=== PATIENT | male | born 1950 | race Caucasian/White ===

== ENCOUNTER 2017-11-16 10:24 | Emergency (ER) | payer MEDICARE ==
[2017-11-16 11:17] LABS: #Eosinphils 0.1 thou/uL (0.0-0.7); #Lymphocytes 0.7 thou/uL (1.20-3.40); #Monocytes 0.9 thou/uL (0.11-0.59); #Neutrophils 8.3 thou/uL (1.40-6.50); %Basophils 0.3 % (0.0-1.0); %Eosinophils 0.6 % (0.0-10.0); %Lymphocytes 7.1 % (21.0-51.0); %Monocytes 9.4 % (0.0-10.0); %Neutrophils 82.7 % (42.0-75.0); Hemoglobin 11.8 g/dL (14.0-18.0); Mean Corpuscular HGB CONC 32.7 g/dL (32.0-36.0); Mean Corpuscular Hemoglobin 30.9 pg (27.0-31.0); Mean Corpuscular Volume 94.7 fl (80.0-94.0); Mean Platelet Volume 7.8 fL (7.4-10.4); Platelet Count 174 thou/uL (130-400); RBC Distribution Width 13.3 % (11.5-14.5); Red Blood Cell (RBC) Count 3.82 mill/uL (4.70-6.10)
--- NOTE | 2017-11-16 11:26 | RAD ---
PORTABLE CHEST 1 VIEW: DATE: 11/16/17. TIME: 11:01 a.m. HISTORY: Difficulty breathing. FINDINGS/IMPRESSION: Comparison is made with the exam of 01/05/16. The heart size is normal. The lungs are expanded with chronic changes predominantly in the lower margarita g walker. Prominent interstitial markings demonstrate interval worsening at the lung bases which may be due to an overlying acute process or worsening of chronic disease. No pneumothoraces, jasmin pulm onary edema, or large effusions are seen. Small effusions may be present. POS: [facility]
[2017-11-16 11:43] LABS: ALT (SGPT) 17 U/L (8-55); AST (SGOT) 24 U/L (5-34); Albumin 3.9 g/dL (3.4-4.8); Alkaline Phosphatase 73 U/L (40-150); Anion Gap 9 mmol/L (10-20); BUN (Urea Nitrogen) 14 mg/dL (8.4-25.7); Bilirubin, Total 0.5 mg/dL (0.2-1.2); Calc. Creatinine Clearance 0 mL/min (70-130); Calcium 8.8 mg/dL (7.8-10.44); Carbon Dioxide 36 mmol/L (23-31); Chloride 90 mmol/L (98-107); Estimated GFR-MDRD Greater than 90; Globulin 3.2 g/dL (2.4-3.5); Glucose 116 mg/dL (80-115); Potassium 4.4 mmol/L (3.5-5.1); Protein, Total 7.1 g/dL (5.8-8.1); Sodium 131 mmol/L (136-145)
[2017-11-16 11:45] LABS: CKMB 0.8 ng/mL (0-6.6); Troponin I 0.027 ng/mL (< 0.028)
[2017-11-16] MEDS ORDERED: methylPREDNISolone Sod Succ/PF 125 MG/2 ML VIAL ONE (13:30)
--- NOTE | 2017-12-06 15:12 | EKG ---
Test Reason : Blood Pressure : / mmHG Vent. Rate : 083 BPM Atrial Rate : 083 BPM P-R Int : 154 ms QRS Dur : 088 ms QT Int : 358 ms P-R-T Axes : 016 073 052 degrees QTc Int : 420 ms Normal sinus rhythm Normal ECG Confirmed by CARYN TERRY ([id number]), editor & co founder WANDA ELLIOTT ([id number] on 12/06/2017 3:12:05 PM Referred By: Confirmed By:CARYN TERRY
== END 2017-11-16 15:38 | disposition home or self-care (01) ==
LOC: ERS 10:24
DX: J44.9 Chronic obstructive pulmonary disease, unspecified (principal); I10 Essential (primary) hypertension
CPT/HCPCS: 71045; 80053; 82553; 83880; 84484; 85025; 93005; 94640; 94760; 96365; 96375; J1956; J2930; J7620

== ENCOUNTER 2018-03-13 00:09 | Emergency (ER) | payer MEDICARE ==
[2018-03-13 00:49] LABS: #Eosinphils 0.1 thou/uL (0.0-0.7); #Monocytes 0.7 thou/uL (0.11-0.59); #Neutrophils 7.5 thou/uL (1.40-6.50); %Basophils 0.1 % (0.0-1.0); %Eosinophils 0.8 % (0.0-10.0); %Lymphocytes 10.3 % (21.0-51.0); %Monocytes 7.7 % (0.0-10.0); %Neutrophils 81.1 % (42.0-75.0); Hemoglobin 11.5 g/dL (14.0-18.0); Mean Corpuscular HGB CONC 33.2 g/dL (32.0-36.0); Mean Corpuscular Hemoglobin 30.3 pg (27.0-31.0); Mean Corpuscular Volume 91.3 fl (80.0-94.0); Platelet Count 178 thou/uL (130-400); RBC Distribution Width 13.9 % (11.5-14.5); Red Blood Cell (RBC) Count 3.79 mill/uL (4.70-6.10); White Blood Cell (WBC) Count 9.3 thou/uL (4.8-10.8)
[2018-03-13] MEDS ORDERED: Fentanyl 100 MCG/2 ML VIAL ONE (01:09)
[2018-03-13 01:18] LABS: ALT (SGPT) 19 U/L (8-55); AST (SGOT) 25 U/L (5-34); Albumin 3.9 g/dL (3.4-4.8); Alkaline Phosphatase 84 U/L (40-150); Anion Gap 16 mmol/L (10-20); BUN (Urea Nitrogen) 16 mg/dL (8.4-25.7); Bilirubin, Total 0.6 mg/dL (0.2-1.2); Calc. Creatinine Clearance 0 mL/min (70-130); Calcium 8.8 mg/dL (7.8-10.44); Carbon Dioxide 25 mmol/L (23-31); Chloride 92 mmol/L (98-107); Estimated GFR-MDRD Greater than 90; Globulin 2.9 g/dL (2.4-3.5); Glucose 118 mg/dL (80-115); Potassium 3.8 mmol/L (3.5-5.1); Protein, Total 6.8 g/dL (5.8-8.1); Sodium 129 mmol/L (136-145)
--- NOTE | 2018-03-13 08:06 | RAD ---
PORTABLE CHEST 1 VIEW: DATE: 03/13/18. TIME: 12:30 p.m. HISTORY: Fall, left-sided pain. FINDINGS/IMPRESSION: Comparison is made with the exam of 11/16/17. The heart size is normal. Chronic changes in the lung walker are again seen. No lobar consolidation, pneumothoraces, or large effusions are identified. POS: [facility]
--- NOTE | 2018-03-13 08:24 | RAD ---
LEFT FOREARM 2 VIEWS:LEFT FOREARM 2 VIEWS: HISTORY: Fall, left elbow pain. FINDINGS/IMPRESSION: There is an avulsion fracture of the olecranon process in the ulna with mild superior displacement. Soft tissue swelling is seen posteriorly at the level of the elbow. POS: [facility]
--- NOTE | 2018-03-13 08:27 | RAD ---
LEFT CLAVICLE TWO VIEWS: History: Fall, left sided shoulder pain. FINDINGS/IMPRESSION: There are degenerative changes in the acromioclavicular joint. The left clavicle appears intact. POS: [facility]
--- NOTE | 2018-03-13 08:29 | RAD ---
LEFT ELBOW FOUR VIEWS: History: Fall, left elbow pain. FINDINGS/IMPRESSION: There is an avulsion fracture of the olecranon process with mild superior displacement. Soft tissue s welling is present. POS: [facility]
--- NOTE | 2018-03-13 08:32 | RAD ---
THREE VIEWS LEFT SHOULDER: Date: 03-13-18 Comparison: None. History: Fall, trauma, pain. FINDINGS: There is degenerative change of the right AC joint with interspace narrowing and osteophyte formation . There is narrowing of the glenohumeral joint with inferior osteophyte formation. There is no wideni ng of the coracoclavicular interspace. No acute fracture or evidence of dislocation is seen. On the scapula Y view there is corticated osseous fragment adjacent to the posterior aspect of the ac romion, which could be on the basis of prior trauma, degenerative change, or possibly calcific tendin osis. IMPRESSION: Chronic appearing findings as described above. No acute fracture or evidence of dislocation is seen. POS: [facility]
== END 2018-03-13 02:48 | disposition home or self-care (01) ==
LOC: ERS 00:09
DX: S52.022A Displaced fracture of olecranon process without intraarticular extension of left ulna, initial encounter for closed fracture (principal); S49.92XA Unspecified injury of left shoulder and upper arm, initial encounter; J44.9 Chronic obstructive pulmonary disease, unspecified; I10 Essential (primary) hypertension; Z87.891 Personal history of nicotine dependence; Z79.899 Other long term (current) drug therapy; W01.0XXA Fall on same level from slipping, tripping and stumbling without subsequent striking against object, initial encounter
CPT/HCPCS: 24670; 71045; 80053; 85025; 94760; 96361; 96374; J3010

== ENCOUNTER 2019-05-30 16:11 | Emergency (ER) | payer MEDICARE ==
[2019-05-30 16:51] LABS: #Eosinphils 0.1 thou/uL (0.0-0.7); #Lymphocytes 0.9 thou/uL (1.20-3.40); #Monocytes 0.7 thou/uL (0.11-0.59); #Neutrophils 5.6 thou/uL (1.40-6.50); %Basophils 0.2 % (0.0-1.0); %Eosinophils 0.9 % (0.0-10.0); %Monocytes 10.3 % (0.0-10.0); %Neutrophils 76.6 % (42.0-75.0); Hemoglobin 11.4 g/dL (14.0-18.0); Mean Corpuscular HGB CONC 32.4 g/dL (32.0-36.0); Mean Corpuscular Hemoglobin 30.1 pg (27.0-31.0); Mean Corpuscular Volume 92.9 fL (78.0-98.0); Mean Platelet Volume 8.4 fL (7.4-10.4); Platelet Count 158 thou/uL (130-400); RBC Distribution Width 13.6 % (11.5-14.5); Red Blood Cell (RBC) Count 3.79 mill/uL (4.70-6.10); White Blood Cell (WBC) Count 7.3 thou/uL (4.8-10.8)
[2019-05-30 17:00] LABS: Bilirubin Negative (Negative); Blood, Urine Negative (Negative); Clarity Clear (Clear); Glucose, Urine (Dipstick) Normal (Negative); Leukocyte 75 Leu/uL (Negative); Nitrite Negative (Negative); Protein, Urine (Dipstick) Negative (Neg-Trace); RBC/HPF 0-3 HPF (0-3); Squamous Epithelial None Seen HPF (0-3); Urobilinogen Normal mg/dL (Less than 2)
[2019-05-30 17:01] LABS: Bacteria/HPF 1+ HPF (None Seen)
[2019-05-30 17:10] LABS: ALT (SGPT) 18 U/L (8-55); AST (SGOT) 21 U/L (5-34); Albumin 3.8 g/dL (3.4-4.8); Alkaline Phosphatase 80 U/L (40-150); Anion Gap 11 mmol/L (10-20); BUN (Urea Nitrogen) 14 mg/dL (8.4-25.7); Bilirubin, Total 0.6 mg/dL (0.2-1.2); Calc. Creatinine Clearance 0 mL/min (70-130); Calcium 8.5 mg/dL (7.8-10.44); Carbon Dioxide 32 mmol/L (23-31); Chloride 93 mmol/L (98-107); Estimated GFR-MDRD Greater than 90; Globulin 2.7 g/dL (2.4-3.5); Glucose 95 mg/dL (80-115); Potassium 4.8 mmol/L (3.5-5.1); Protein, Total 6.5 g/dL (5.8-8.1); Sodium 131 mmol/L (136-145)
== END 2019-05-30 17:50 | disposition home or self-care (01) ==
LOC: ERS 16:11
DX: N39.0 Urinary tract infection, site not specified (principal); I10 Essential (primary) hypertension; J44.9 Chronic obstructive pulmonary disease, unspecified; Z87.891 Personal history of nicotine dependence; Z79.899 Other long term (current) drug therapy
CPT/HCPCS: 36415; 80053; 81003; 81015; 85025; 87086; 99283

== ENCOUNTER 2019-06-24 15:41 | Outpatient (CLI) | payer MEDICARE ==
--- NOTE | 2019-06-24 16:17 | RAD ---
EXAM: CHEST PA AND LATERAL TWO VIEWS: 06/24/19 HISTORY: Dyspnea. COMPARISON: 03/13/18. FINDINGS: Bilateral hyperinflation and chronic lung changes with linear changes in the lung bases and blunting of the costophrenic angles greater on the right side but overall stable. No confluent pneumonia, over t edema, or pleural effusion. IMPRESSION: Hyperinflation and chronic lung changes. Stable appearance from prior study. POS: [facility]
== END 2019-06-24 15:42 | disposition home or self-care (01) ==
LOC: RAD 15:41
PROVIDERS: ATTEND Internal Medicine Critical Care Medicine
DX: R06.00 Dyspnea, unspecified (principal); J98.4 Other disorders of lung
CPT/HCPCS: 71046

== ENCOUNTER 2020-07-30 15:01 | Emergency (ER) | payer MEDICARE ==
[2020-07-30] MEDS ORDERED: Boostrix 0.5 ML (Tdap) VIAL ONE (15:54)
--- NOTE | 2020-07-30 16:06 | CT ---
CT BRAIN WITHOUT CONTRAST: 07/30/20 HISTORY: Fall, headache. FINDINGS: No evidence of acute infarct, hemorrhage, midline shift or abnormal extra-axial fluid collections are seen. The ventricular size is normal and the basilar cisterns patent. the bony calvarium is intact. The visualized paranasal sinuses and mastoid air cells are well aerated. IMPRESSION: No CT evidence of acute intracranial process. POS: [facility]
--- NOTE | 2020-07-30 16:23 | RAD ---
Exam: XR Knee Lt 2 View HISTORY: Left knee injury. COMPARISON: None FINDINGS: No acute fracture or dislocation is seen. There is irregularity anterior tibial tuberosity which may be related to prior injury or prior Darin-Schlatter's disease. Osteopenia is present. No other findings IMPRESSION: No acute osseous abnormality is identified.
--- NOTE | 2020-07-30 16:24 | RAD ---
EXAM: XR Hand Lt 3 View STANDARD PROVIDED CLINICAL HISTORY: Pain FINDINGS: There is no evidence for fracture or other acute osseous abnormality. Advanced first CMC degenerative change. Joint spaces appear otherwise preserved. IMPRESSION: No evidence for an acute osseous abnormality. If there is persistent clinical concern, conservative m anagement and follow-up imaging advised.
--- NOTE | 2020-07-30 16:25 | RAD ---
EXAM: 2 views of the left humerus HISTORY: left arm pain after fall COMPARISON: Chest x-ray 06/24/2019 FINDINGS: 2 views of the left humerus shows an ossific fragment adjacent to the proximal aspect of th e humerus. No other potential humeral is fractures are seen. There is a fracture of the olecranon. No degenerative changes are seen. No soft tissue swelling is present. IMPRESSION: 1. Ossific fragment adjacent to the humeral head. This could represent calcific tendinopathy but a fr acture cannot be entirely excluded. A dedicated shoulder series is recommended. 2. Olecranon fracture at the elbow.
--- NOTE | 2020-07-30 16:26 | RAD ---
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 No evidence for an acute fracture. Alignment ap pears otherwise anatomic. Joint spaces appear preserved. If there is persistent clinical concern, conservative management and follow-up imaging advised. IMPRESSION: As above.
--- NOTE | 2020-07-30 16:27 | RAD ---
Exam: XR Forearm Lt 2 View STANDARD HISTORY: Patient fell on right side. Injury after fall. COMPARISON: Views left elbow on 07/30/2020 and 04/18/2018 FINDINGS: There is evidence of a nonunion fracture involving the olecranon process of the ulna. This fracture w as seen on prior views of the elbow on 03/13/2018 and 04/18/2018. No obvious acute fracture is seen, and there is no dislocation. Mild degenerative changes are seen at the elbow. Osteopenia is present. Mild subcutaneous soft tissue swelling is seen at the distal aspect of the forearm. IMPRESSION: 1. No acute osseous abnormality left elbow. 2. Nonunion fracture olecranon process left elbow. 3. Mild subcutaneous soft tissue swelling distal left forearm.
--- NOTE | 2020-07-30 16:45 | RAD ---
Exam:3 views left shoulder HISTORY: Pain. Fall. Weakness. COMPARISON: 03/13/2018 FINDINGS: There is extensive chronic degenerative change involving the left shoulder. There is osteop hyte formation along the joint space. No obvious dislocation or fracture. Lucency involving the greater tuberosity is presumed to be due to chronic change. Lucency is similar to the previous exam. There are degenerative changes of the acromioclavicular joint space Stable fragmentation along the posterior aspect of the joint space best demonstrated on the scapular Y view. Stable bone demineralization. IMPRESSION: Degenerative changes involving the left shoulder. No fracture. If there is still concern, consider CT.
== END 2020-07-30 17:05 | disposition home or self-care (01) ==
LOC: ERS 15:01
DX: S60.212A Contusion of left wrist, initial encounter (principal); S00.91XA Abrasion of unspecified part of head, initial encounter; I10 Essential (primary) hypertension; J44.9 Chronic obstructive pulmonary disease, unspecified; Z87.891 Personal history of nicotine dependence; Z79.899 Other long term (current) drug therapy; W01.10XA Fall on same level from slipping, tripping and stumbling with subsequent striking against unspecified object, initial encounter
CPT/HCPCS: 70450; 90471; 90715

== ENCOUNTER 2020-08-04 15:18 | Inpatient (IN) | payer MEDICARE ==
[~2020-08-04 15:18] MED LIST: Iopamidol-370 76% 500 ML 1 ML ONE
[2020-08-04 15:55] LABS: #Eosinphils 0.1 thou/uL (0.0-0.7); #Lymphocytes 1.1 thou/uL (1.20-3.40); #Monocytes 1.1 thou/uL (0.11-0.59); %Basophils 0.4 % (0.0-1.0); %Eosinophils 1.4 % (0.0-10.0); %Lymphocytes 10.2 % (21.0-51.0); %Monocytes 10.8 % (0.0-10.0); %Neutrophils 77.2 % (42.0-75.0); Hemoglobin 10.5 g/dL (14.0-18.0); Mean Corpuscular HGB CONC 32.2 g/dL (32.0-36.0); Mean Corpuscular Hemoglobin 30.1 pg (27.0-31.0); Mean Corpuscular Volume 93.3 fL (78.0-98.0); Mean Platelet Volume 8.4 fL (7.4-10.4); Platelet Count 210 thou/uL (130-400); White Blood Cell (WBC) Count 10.3 thou/uL (4.8-10.8)
[2020-08-04] MEDS ORDERED: Acetaminophen 500 MG TAB ONE (16:02)
--- NOTE | 2020-08-04 16:15 | RAD ---
RADIOGRAPH CHEST 1 VIEW: Date: 08/04/2020 Time: 3:55 P.M. HISTORY: 70-year-old male with dyspnea and hypoxemia. COMPARISON: 06/24/2019. FINDINGS: Prominent interstitial markings at lower lung zones, appear greater than on the prior study. That cou ld be due to technical differences with difference in exposure between the two studies. Generalized h yperinflation consistent with COPD. No obvious definite consolidation. No cardiomegaly. No pneumothor ax. IMPRESSION: 1. Emphysema. 2. Prominent interstitial markings at mid and lower lung zones. DANNY [] POS: [facility]
[2020-08-04 16:18] LABS: ALT (SGPT) 13 U/L (8-55); AST (SGOT) 15 U/L (5-34); Albumin 3.3 g/dL (3.4-4.8); Alkaline Phosphatase 73 U/L (40-110); Anion Gap 10 mmol/L (10-20); BUN (Urea Nitrogen) 16 mg/dL (8.4-25.7); Calc. Creatinine Clearance 0 mL/min (70-130); Calcium 8.3 mg/dL (7.8-10.44); Carbon Dioxide 37 mmol/L (23-31); Chloride 92 mmol/L (98-107); Estimated GFR-MDRD Greater than 90; Globulin 3.5 g/dL (2.4-3.5); Glucose 110 mg/dL (80-115); Potassium 5.3 mmol/L (3.5-5.1); Protein, Total 6.8 g/dL (5.8-8.1); Sodium 134 mmol/L (136-145)
[2020-08-04 16:24] LABS: Bilirubin, Total 0.5 mg/dL (0.2-1.2)
[2020-08-04] MEDS ORDERED: methylPREDNISolone Sod Succ/PF 125 MG/2 ML VIAL ONE (16:35)
[2020-08-04] MEDS ORDERED: Albuterol 200 PUFF (6.7GM INHALER) ONE (16:37)
[2020-08-04 16:38] LABS: Bilirubin Negative (Negative); Blood, Urine Negative (Negative); Glucose, Urine (Dipstick) Negative (Negative); Ketone, Urine Negative (Negative); Leukocyte Negative (Negative); Nitrite Negative (Negative); Protein, Urine (Dipstick) Negative (Neg-Trace)
[2020-08-04 16:43] LABS: Clarity Clear (Clear)
--- NOTE | 2020-08-04 17:48 | CT ---
CT ANGIOGRAM THORAX WITH IV CONTRAST AND 3-D RECONSTRUCTIONS CLINICAL INDICATION: Increased shortness of breath and elevated d-dimer. COMPARISON: 03/19/2013 FINDINGS: Pulmonary arteries: No filling defects are seen in the pulmonary arteries to suggest a pulmonary embo tyra. Aorta: Minimal vascular calcifications are present. Thoracic aorta is normal in caliber without evide nce of an aortic dissection. Lungs: There are emphysematous changes seen within the lungs bilaterally greater in the upper lobes w hich have progressed from prior study in 2013. Mild interstitial thickening is present in each upper lobe. There are reticulonodular densities seen at the right lung base with consolidation at the right lung base. A 7 mm pulmonary nodule is seen in the left upper lobe. This was not seen on study in 2013. Tiny bilateral pleural effusions are present. Scarring is present at the right lung base. There are filling defects seen within right lower lobe bronchi which could be related to mucous plugg ing or aspiration. There is also small amount of debris in the posterior aspect of the lower thoracic trachea with may be related to small amount of debris. No definite filling defects are seen within left-sided bronchi. Mediastinum: There is an enlarged AP window lymph node measuring 1.8 cm in short axis dimension with increase in number of mediastinal lymph nodes. There is increased soft tissue density in the subcarinal region related to enlarged lymph nodes measuring 1.5 cm in short axis dimension. Soft tiss ue density is seen in the right hilar region measuring approximately 2.8 cm with soft tissue density also seen in the left hilar region but smaller in size suggesting bilateral hilar lymphadenop athy. There are several hypodense structures likely due to enlarged lymph nodes in a paravertebral location which are adjacent to several lower thoracic vertebral bodies largest on the right measuring 2 cm. Largest presumed lymph node on the left measures 1.4 cm in short axis dimension. The heart is mildly enlarged. Vascular calcifications are seen in the coronary arteries. There is a small hiatal hernia with particulate matter seen in the most distal esophagus related to g astroesophageal reflux. Thyroid gland: Normal CT appearance. Osseous structures: Multilevel degenerative changes are seen in the spine. There is bilateral glenohu meral osteoarthropathy. Chest wall: Minimal gynecomastia present. Upper abdomen: Calcified granulomata in the liver and spleen. Few hypodense lesions are seen in the l eft hepatic lobe largest seen in the posterior aspect lateral segment left hepatic lobe measuring 1.4 cm which cannot be further characterized on this examination. IMPRESSION: 1. Mediastinal and bilateral hilar lymphadenopathy including multiple enlarged lymph nodes adjacent t o lower thoracic vertebral bodies in a subpleural location. While findings could be related to reactive lymphadenopathy, lymphadenopathy related to lymphoma or metastatic disease cannot be exclude d. 2. Filling defects in right lower lobe bronchi with consolidation right lung base. These findings cou ld be related to mucous plugging and volume loss. Aspiration and associated aspiration pneumonitis is a possibility or postobstructive pneumonitis. 3. Reticulonodular densities right lower lobe suggesting infectious or inflammatory process. 4. Left upper lobe pulmonary nodule measuring 7 mm. No definite additional discrete pulmonary nodules are seen. Continued follow-up of this finding is recommended in 4 months. 5. Mild cardiomegaly. 6. Difficult to characterize hypodense lesions left hepatic lobe. 7. Hiatal hernia with debris in the distal esophagus which may related to gastroesophageal reflux. 8. No CT evidence of a pulmonary embolus
[2020-08-04] MEDS ORDERED: Azithromycin 500 MG VIAL ONE (19:28)
[2020-08-04] MEDS ORDERED: cefTRIAXone\\ROCEPHIN 1 GM VIAL ONE (19:28)
[2020-08-04] MEDS ORDERED: Metoprolol Tartrate 5 MG/5 ML VIAL IVP PRN (21:59)
[2020-08-05] MEDS ORDERED: methylPREDNISolone Sod Succ 40 MG VIAL ONE (00:33)
--- NOTE | 2020-08-05 01:51 | HP ---
REASON FOR ADMISSION: Shortness of breath. HISTORY OF PRESENT ILLNESS: This is a 70-year-old male patient who is presenting with shortness of breath that has been going back to couple weeks before his presentation. He is known to have COPD and usually his pulse ox is around 89% to 90% at rest and dips down a bit when he ambulates, but recently he has been having a decreased pulse ox to around 65% on ambulation. He was seen by his headrig sawyer, Dr. Bird, who started him on antibiotics and steroids. He did see him a month ago, but he has not been improving and that is why he came to the emergency room. Currently, he feels a bit better after receiving breathing treatments and IV antibiotics as well as IV Solu-Medrol. I did review his records and his last admission to the hospital was approximately 7 years ago. During his stay, he was diagnosed with lung abscess and COPD. He did undergo a bronchoscopy and pulmonary decortication on the right with drainage of his lung abscess. The patient was seen in the ER end of last month after he fell and had a trauma to his left arm, also chest. He did not have any chest pain initially, but he did report some the next day. PAST MEDICAL HISTORY: 1. COPD, on 3 L home oxygen. 2. High blood pressure. SOCIAL HISTORY: He quit smoking 19 years ago. He used to be a heavy drinker, but now he drinks once a week. ALLERGIES: HE DOES NOT HAVE ANY KNOWN ALLERGY. FAMILY HISTORY: Negative for premature coronary artery disease. REVIEW OF SYSTEMS: All systems reviewed and except the above-mentioned shortness of breath, found to be negative. PHYSICAL EXAMINATION: GENERAL: He is awake, alert, oriented, does not appear in distress. VITAL SIGNS: His blood pressure is 160/97, heart rate of 110, pulse of 97, saturating 95% on 3 L nasal cannula. HEENT: Head is nontraumatic, normocephalic. Pupils equal, reactive. Extraocular movements are intact. Nonicteric sclerae. Well-injected conjunctivae. Oral mucosa normal. Nasal mucosa normal. NECK: Supple. No adenopathy. No murmur. Thyroid is not palpable. Trachea is midline. No supraclavicular adenopathy. HEART: S1, S2 regular. No murmur. No gallop. No friction rubs. No displacement of PMI. LUNGS: Decreased air entry bilaterally. End-expiratory rhonchi anteriorly. ABDOMEN: Bowel sounds are positive. Nontender abdomen. No hepatosplenomegaly. EXTREMITIES: 1+ pitting edema in both lower extremities. NEUROLOGIC: Cranial nerves 2 through 12 within normal limits. Normal motor function. Normal sensory function and reflexes. LABORATORY DATA: Blood work shows WBC of 10.3; hemoglobin 10.5, which is around his baseline; and platelet count 210. D-dimer 1.14. Sodium 134, potassium 5.3, creatinine 0.68. Urinalysis is negative for infection. CT of the chest shows mediastinal and bilateral hilar lymphadenopathy, including multiple enlarged lymph nodes adjacent to the lower thoracic vertebral bodies in a subpleural location while finding could be related to reactive lymphadenopathy related to lymphoma or metastatic disease cannot be excluded. Filling defects in right lower lobe bronchi with consolidation in right lung base. These findings could be related to mucus plugging and volume loss. Aspiration and associated aspiration pneumonitis is a possibility or postobstructive pneumonitis. Reticulonodular densities in the right lower lobe suggesting infectious or inflammatory process. Left upper lobe pulmonary nodule measuring 7 mm. No additional discrete pulmonary nodules are seen. Followup recommended in 4 months. Mild cardiomegaly. Difficult to characterize hypodense lesion in left hepatic lobe. Hiatal hernia with debris in the distal esophagus mentioned, maybe related to gastroesophageal reflux. No CT evidence of PE. EKG shows normal sinus rhythm. ASSESSMENT AND PLAN: This is a 70-year-old male patient, presenting with shortness of breath secondary to chronic obstructive pulmonary disease exacerbation, underlying pneumonia, and mucus plugging. He does have a history of pulmonary abscess diagnosed 7 years ago that required to be drained. Recently, he fell and was seen in the ER for that reason. He did mention some chest pain, but he thinks it might be probably related to his fall. Cardiac. The patient will be monitored on telemetry. We will provide him with blood pressure control. We will check his cardiac enzymes. Pulmonary. The patient will be on neb treatments, IV Solu-Medrol, and antibiotics for community-acquired pneumonia. We will ask Pulmonary to see him. There was incidental finding of possible liver nodes. We will do a right upper quadrant sono to further investigate this finding. I did discuss with him his code status. He wishes to be a full code. Job ID: [id number]
[2020-08-05 02:42] VITALS: BMI 32.1
[2020-08-05 03:01] LABS: SARS-CoV-2 NAA Rapid Test Not Detected (NotDetected)
[2020-08-05] MEDS: methylPREDNISolone Sod Succ 40 MG VIAL IVP SCH ×4 (04:04→17:12)
[2020-08-05 04:52] LABS: #Lymphocytes 0.5 thou/uL (1.20-3.40); #Monocytes 0.1 thou/uL (0.11-0.59); #Neutrophils 8.1 thou/uL (1.40-6.50); %Eosinophils 0.1 % (0.0-10.0); %Monocytes 1.3 % (0.0-10.0); %Neutrophils 92.5 % (42.0-75.0); Hemoglobin 10.3 g/dL (14.0-18.0); Mean Corpuscular HGB CONC 31.4 g/dL (32.0-36.0); Mean Corpuscular Hemoglobin 29.5 pg (27.0-31.0); Mean Platelet Volume 8.4 fL (7.4-10.4); Platelet Count 214 thou/uL (130-400); RBC Distribution Width 13.9 % (11.5-14.5); Red Blood Cell (RBC) Count 3.49 mill/uL (4.70-6.10); White Blood Cell (WBC) Count 8.8 thou/uL (4.8-10.8)
[2020-08-05 05:13] LABS: Anion Gap 9 mmol/L (10-20); BUN (Urea Nitrogen) 12 mg/dL (8.4-25.7); Calc. Creatinine Clearance 178 mL/min (70-130); Calcium 8.2 mg/dL (7.8-10.44); Carbon Dioxide 34 mmol/L (23-31); Chloride 97 mmol/L (98-107); Estimated GFR-MDRD Greater than 90; Glucose 137 mg/dL (80-115); Potassium 4.9 mmol/L (3.5-5.1); Sodium 135 mmol/L (136-145)
--- NOTE | 2020-08-05 07:42 | ULT ---
ULTRASOUND ABDOMEN COMPLETE: DATE: 08/05/2020 6:20 AM HISTORY: Hepatic lesion found on yesterday's CT pulmonary angiogram FINDINGS: Gallbladder: Normal wall thickness. No gallstones or sludge identified. No pericholecystic fluid. Liver: Normal parenchymal echogenicity. 1.5 x 1 cm cyst in left lobe of liver adjacent to IVC. This p robably corresponds to the lesion noted on yesterday's CT pulmonary angiogram. Bilateral kidneys: No hydronephrosis. Pancreas: Nonspecific sonographic appearance. Common duct caliber: 6 mm. Abdominal aorta: No aneurysm Inferior vena cava: Unremarkable where visualized. Spleen: No splenomegaly IMPRESSION: 1) small cyst in left lobe of liver 2.) Otherwise negative
[2020-08-05] MEDS: Enoxaparin Sodium 40 MG/0.4 ML SYRINGE SC SCH (07:49)
--- NOTE | 2020-08-05 08:51 | PDOC.HOSPP ---
- Subjective Encounter Date: 08/05/20 Encounter Time: 10:00 Subjective: Patient with no SOB at rest, but severe SOB and hypoxia with ambulation that has developed recently. No other complaints. - Objective Vital Signs & Weight: Vital Signs (12 hours) Temp Pulse Resp BP Pulse Ox 08/05/20 07:58 97.4 F L 95 18 136/70 94 L 08/05/20 07:06 97 08/05/20 07:05 77 16 97 08/05/20 04:41 18 92 L 08/05/20 03:05 98.8 F 97 20 142/78 H 97 Weight Weight 230 lb 6.4 oz I&O: 08/04/20 08/05/20 08/06/20 06:59 06:59 06:59 Output Total 250 Balance -250 Result Diagrams: 08/05/20 04:40 08/05/20 04:40 Hospitalist ROS - Review of Systems Constitutional: denies: fever, chills Respiratory: reports: SOB with excertion. denies: cough, shortness of breath Cardiovascular: denies: chest pain, palpitations Gastrointestinal: denies: nausea, vomiting, abdominal pain - Medication Medications: Active Medications Generic Name Dose Route Start Last Admin Trade Name Freq PRN Reason Stop Dose Admin Albuterol/Ipratropium 3 ml 08/04/20 22:30 08/05/20 07:05 Ipratropium/Albuterol Sulfate 3 Ml Neb NEB 3 ml [id number] KATHY Administration Enoxaparin Sodium 40 mg 08/05/20 09:00 08/05/20 07:49 Enoxaparin Sodium 40 Mg/0.4 Ml Syringe SC 40 mg 0900 KATHY Administration Methylprednisolone Sodium Succinate 40 mg 08/04/20 23:59 08/05/20 05:36 Methylprednisolone Sod Succ 40 Mg Vial IVP 40 mg Q6HR KATHY Administration - Exam General Appearance: NAD, awake alert ENT: moist mucosa Heart: RRR, no murmur, no gallops, no rubs Respiratory - other findings: decent air movement, no wheezing Gastrointestinal: soft, non-tender, non-distended, normal bowel sounds Psychiatric: normal affect, normal behavior, A&O x 3 Hosp A/P (1) COPD exacerbation Code(s): J44.1 - CHRONIC OBSTRUCTIVE PULMONARY DISEASE W (ACUTE) EXACERBATION Status: Acute (2) Pneumonia Code(s): J18.9 - PNEUMONIA, UNSPECIFIED ORGANISM Status: Acute (3) Acute and chronic respiratory failure with hypoxia Code(s): J96.21 - ACUTE AND CHRONIC RESPIRATORY FAILURE WITH HYPOXIA Status: Acute (4) HTN (hypertension) Code(s): I10 - ESSENTIAL (PRIMARY) HYPERTENSION Status: Chronic Qualifiers: Hypertension type: essential hypertension Qualified Code(s): I10 - Essential (primary) hypertension - Plan Patient on Nebs, Steroids, Oxygen, Rocephin and Azithromycin since 08/04/2020. Pulmonology consult. DVT Proph: Lovenox GI Proph: Protonix
[2020-08-05] MEDS ORDERED: FLU VACC QS2020-21(65YR UP)/PF 240 MCG/0.7 ML SYRINGE IM ONE (09:00)
[2020-08-05] MEDS: Lisinopril 2.5 MG TAB PO SCH (09:43)
--- NOTE | 2020-08-05 13:23 | CON ---
DATE OF CONSULTATION: HISTORY OF PRESENT ILLNESS: Alireza Bowens is a 70-year-old obese gentleman, who sees Dr. Bird in the office, presented with hypoxemia, shortness of breath with exertion, and cough which is essentially nonproductive on non-rebreather 100%, he tells me he can barely walk 50 feet and his oxygen saturation decreases. He is on low-flow O2 at home . He has Breo inhaler and apparently albuterol inhaler. Blood pressure was 134/87 in the ER, pulse 89, respiratory rate 20. He is denying any chest pain, chills, or sweats. Chest x-ray and CT of chest were done, which did not show any obvious masses or infiltrates. His coronavirus test was negative. PAST MEDICAL HISTORY: 1. COPD. 2. Hypertension. 3. Obesity. PAST SURGICAL HISTORY: Thoracotomy. HOME MEDICINES: 1. Ventolin. 2. Zestril 2.5. 3. Breo inhaler. ALLERGIES: NONE. SOCIAL HISTORY: Former smoker. No alcohol abuse. No drug abuse. PHYSICAL EXAMINATION: VITAL SIGNS: Temperature 97, pulse 105, respiratory rate 18, sats 95% on 3 L, blood pressure 127/60. GENERAL: He appears to be in no acute distress. CHEST: No wheezing. No crackles. CARDIAC: Normal S1, S2. No gallops. ABDOMEN: No masses. LABORATORY DATA: White count 8000. Lytes are normal. ASSESSMENT: COPD exacerbation, bronchitis, morbid obesity, severe deconditioning. His CT of chest showed nonspecific mediastinal hilar adenopathy. Questionable infiltrate in the bases, but his chest x-ray was unremarkable. PLAN: I agree with present treatment. If he stabilizes, he can be discharged home to follow up with Dr. Bird. As mentioned above, I am not very impressed by his CT findings. Consultation note, 70 minutes, 50% direct patient care. Job ID: [id number]
[2020-08-05] MEDS ORDERED: cefTRIAXone\\ROCEPHIN 1 GM in Sodium Chloride 0.9% 100 ML IVPB SCH (18:00)
[2020-08-05] MEDS ORDERED: Mometasone 100 MCG/Formoterol 5 MCG 120 PUFF INHALER INH SCH (18:30)
[2020-08-05] MEDS ORDERED: Azithromycin 500 MG in Sodium Chloride 0.9% 250 ML 250 ML IVPB SCH (20:00)
[2020-08-05] MEDS: Mometasone 200 MCG/Formoterol 5 MCG 120 PUFF INHALER INH SCH (21:06)
[2020-08-05] MEDS: Doxycycline 100 MG CAP PO SCH (21:06)
[2020-08-06] MEDS: methylPREDNISolone Sod Succ 40 MG VIAL IVP SCH ×2 (01:59→06:35)
[2020-08-06 06:15] LABS: Troponin I 0.016 ng/mL (< 0.028)
[2020-08-06] MEDS: Mometasone 200 MCG/Formoterol 5 MCG 120 PUFF INHALER INH SCH ×2 (06:34→19:31)
--- NOTE | 2020-08-06 07:18 | PDOC.HOSPP ---
- Subjective Encounter Date: 08/06/20 Encounter Time: 09:00 Subjective: Patient going ok at rest on 3-4 L NC O2. Gets very winded with ambulation. PT going to try getting him up ambulating today. - Objective Vital Signs & Weight: Vital Signs (12 hours) Temp Pulse Resp BP Pulse Ox 08/06/20 04:05 98.4 F 76 22 H 116/66 96 08/06/20 03:00 99 08/05/20 23:51 98.4 F 110 H 20 117/58 L 95 08/05/20 22:01 99 08/05/20 20:12 98.4 F 91 20 130/70 97 08/05/20 19:55 99 Weight Admit Weight 230 lb 6.4 oz Weight 230 lb 6.4 oz I&O: 08/05/20 08/06/20 08/07/20 06:59 06:59 06:59 Intake Total 720 Output Total 250 575 Balance -250 145 Result Diagrams: 08/05/20 04:40 08/05/20 04:40 Hospitalist ROS - Review of Systems Constitutional: denies: fever, chills Respiratory: reports: SOB with excertion. denies: cough, shortness of breath Cardiovascular: denies: chest pain, palpitations Gastrointestinal: denies: nausea, vomiting, abdominal pain - Medication Medications: Active Medications Generic Name Dose Route Start Last Admin Trade Name Freq PRN Reason Stop Dose Admin Albuterol/Ipratropium 3 ml 08/04/20 22:30 08/06/20 03:00 Ipratropium/Albuterol Sulfate 3 Ml Neb NEB 3 ml [id number] KATHY Administration Doxycycline Hyclate 100 mg 08/05/20 21:00 08/05/20 21:06 Doxycycline 100 Mg Cap PO 08/12/20 21:01 100 mg BID KATHY Administration Enoxaparin Sodium 40 mg 08/05/20 09:00 08/05/20 07:49 Enoxaparin Sodium 40 Mg/0.4 Ml Syringe SC 40 mg 0900 KATHY Administration Ceftriaxone Sodium 1 gm/ 100 mls @ 200 mls/hr 08/05/20 18:00 08/05/20 17:11 Sodium Chloride IVPB 100 mls 1800 KATHY Administration Lisinopril 2.5 mg 08/05/20 09:00 08/05/20 09:43 Lisinopril 2.5 Mg Tab PO 2.5 mg DAILY KATHY Administration Methylprednisolone Sodium Succinate 40 mg 08/04/20 23:59 08/06/20 06:35 Methylprednisolone Sod Succ 40 Mg Vial IVP 40 mg Q6HR KATHY Administration Mometasone Furoate/Formoterol Fumar 2 puff 08/05/20 18:30 08/06/20 06:34 Mometasone 200 Mcg/Formoterol 5 Mcg 120 Puff Inhaler INH 2 puff BID-RT KATHY Administration Pantoprazole Sodium 40 mg 08/05/20 09:00 08/05/20 09:52 Pantoprazole 40 Mg Tab PO Not Given DAILY KATHY - Exam General Appearance: NAD, awake alert ENT: moist mucosa Heart: RRR, no murmur, no gallops, no rubs Respiratory: CTAB, no wheezes, no rales, no ronchi Gastrointestinal: soft, non-tender, non-distended, normal bowel sounds Psychiatric: normal affect, normal behavior, A&O x 3 Hosp A/P (1) COPD exacerbation Code(s): J44.1 - CHRONIC OBSTRUCTIVE PULMONARY DISEASE W (ACUTE) EXACERBATION Status: Acute (2) Pneumonia Code(s): J18.9 - PNEUMONIA, UNSPECIFIED ORGANISM Status: Acute (3) Acute and chronic respiratory failure with hypoxia Code(s): J96.21 - ACUTE AND CHRONIC RESPIRATORY FAILURE WITH HYPOXIA Status: Acute (4) HTN (hypertension) Code(s): I10 - ESSENTIAL (PRIMARY) HYPERTENSION Status: Chronic Qualifiers: Hypertension type: essential hypertension Qualified Code(s): I10 - Essential (primary) hypertension - Plan Patient on Nebs, Steroids, Oxygen, Rocephin and Azithromycin since 08/04/2020. Pulmonology consulted and following. PT to get ambulating and see if O2 sat drop continues. DVT Proph: Lovenox GI Proph: Protonix
[2020-08-06] MEDS: Doxycycline 100 MG CAP PO SCH ×2 (08:23→21:14)
[2020-08-06] MEDS: Lisinopril 2.5 MG TAB PO SCH (08:23)
[2020-08-06] MEDS: Enoxaparin Sodium 40 MG/0.4 ML SYRINGE SC SCH (08:23)
--- NOTE | 2020-08-06 12:34 | PRG ---
DATE OF SERVICE: 08/06/2020 SUBJECTIVE: Alireza Bowens is a 70-year-old gentleman who said he is feeling better today. OBJECTIVE: VITAL SIGNS: Temperature 99, pulse , respirations 20, saturations on 4 L, blood pressure 121/68. CHEST: Decreased breath sounds without any wheezing. CARDIAC: Normal S1 and S2. No gallops. ABDOMEN: No masses. ASSESSMENT: Chronic obstructive pulmonary disease exacerbation, bronchitis. Looks better today. Consider switching over to oral medication. Hopefully, he can be discharged in the next day or two. To follow up with Dr. Bird on outpatient basis. Job ID: [id number]
[2020-08-06] MEDS: Carvedilol 3.125 MG TAB PO SCH (17:04)
[2020-08-06] MEDS: Melatonin 3 MG TAB PO PRN (21:14)
[2020-08-07 04:49] LABS: #Eosinphils 0.1 thou/uL (0.0-0.7); #Lymphocytes 1.2 thou/uL (1.20-3.40); #Monocytes 0.9 thou/uL (0.11-0.59); #Neutrophils 9.2 thou/uL (1.40-6.50); %Basophils 0.2 % (0.0-1.0); %Eosinophils 0.7 % (0.0-10.0); %Lymphocytes 10.3 % (21.0-51.0); %Monocytes 7.9 % (0.0-10.0); %Neutrophils 80.9 % (42.0-75.0); Hemoglobin 10.3 g/dL (14.0-18.0); Mean Corpuscular HGB CONC 31.2 g/dL (32.0-36.0); Mean Corpuscular Volume 96.2 fL (78.0-98.0); Mean Platelet Volume 8.1 fL (7.4-10.4); Platelet Count 210 thou/uL (130-400); RBC Distribution Width 13.9 % (11.5-14.5); Red Blood Cell (RBC) Count 3.43 mill/uL (4.70-6.10); White Blood Cell (WBC) Count 11.4 thou/uL (4.8-10.8)
[2020-08-07 05:15] LABS: Anion Gap 10 mmol/L (10-20); BUN (Urea Nitrogen) 18 mg/dL (8.4-25.7); Calc. Creatinine Clearance 175 mL/min (70-130); Calcium 8.6 mg/dL (7.8-10.44); Carbon Dioxide 35 mmol/L (23-31); Chloride 95 mmol/L (98-107); Estimated GFR-MDRD Greater than 90; Glucose 87 mg/dL (80-115); Potassium 4.9 mmol/L (3.5-5.1); Sodium 135 mmol/L (136-145)
[2020-08-07] MEDS: Mometasone 200 MCG/Formoterol 5 MCG 120 PUFF INHALER INH SCH ×2 (06:58→22:22)
--- NOTE | 2020-08-07 07:44 | PDOC.HOSPP ---
- Subjective Encounter Date: 08/07/20 Encounter Time: 09:45 Subjective: Patient improved. Got up with PT today and ambulated, O2 sat on returning to bed was 87%, and came back up quickly. Decreased dyspnea on exertion. On 2.5L NC here and has 3L at home. - Objective Vital Signs & Weight: Vital Signs (12 hours) Temp Pulse Resp BP Pulse Ox 08/07/20 04:10 98.5 F 70 16 135/66 94 L 08/06/20 22:38 88 16 Weight Admit Weight 230 lb 6.4 oz Weight 230 lb 6.4 oz I&O: 08/06/20 08/07/20 08/08/20 06:59 06:59 06:59 Intake Total 1624 480 Output Total 1225 1320 Balance 399 -840 Result Diagrams: 08/07/20 04:39 08/07/20 04:39 Hospitalist ROS - Review of Systems Constitutional: denies: fever, chills Respiratory: reports: SOB with excertion. denies: cough, shortness of breath Cardiovascular: denies: chest pain, palpitations, orthopnea Gastrointestinal: denies: nausea, vomiting, abdominal pain - Medication Medications: Active Medications Generic Name Dose Route Start Last Admin Trade Name Freq PRN Reason Stop Dose Admin Albuterol/Ipratropium 3 ml 08/04/20 22:30 08/07/20 06:58 Ipratropium/Albuterol Sulfate 3 Ml Neb NEB 3 ml [id number] KATHY Administration Carvedilol 3.125 mg 08/06/20 17:00 08/06/20 17:04 Carvedilol 3.125 Mg Tab PO 3.125 mg BID-WM KATHY Administration Doxycycline Hyclate 100 mg 08/05/20 21:00 08/06/20 21:14 Doxycycline 100 Mg Cap PO 08/12/20 21:01 100 mg BID KATHY Administration Enoxaparin Sodium 40 mg 08/05/20 09:00 08/06/20 08:23 Enoxaparin Sodium 40 Mg/0.4 Ml Syringe SC 40 mg 0900 KATHY Administration Melatonin 3 mg 08/05/20 23:12 08/06/20 21:14 Melatonin 3 Mg Tab PO 3 mg HS PRN Administration Insomnia Mometasone Furoate/Formoterol Fumar 2 puff 08/05/20 18:30 08/07/20 06:58 Mometasone 200 Mcg/Formoterol 5 Mcg 120 Puff Inhaler INH 2 puff BID-RT KATHY Administration Pantoprazole Sodium 40 mg 08/05/20 09:00 08/06/20 08:23 Pantoprazole 40 Mg Tab PO 40 mg DAILY KATHY Administration - Exam General Appearance: NAD, awake alert ENT: moist mucosa Heart: RRR, no murmur, no gallops, no rubs Respiratory: CTAB, no wheezes, no rales, no ronchi Gastrointestinal: soft, non-tender, non-distended, normal bowel sounds Psychiatric: normal affect, normal behavior, A&O x 3 Hosp A/P (1) COPD exacerbation Code(s): J44.1 - CHRONIC OBSTRUCTIVE PULMONARY DISEASE W (ACUTE) EXACERBATION Status: Acute (2) Pneumonia Code(s): J18.9 - PNEUMONIA, UNSPECIFIED ORGANISM Status: Acute (3) Acute and chronic respiratory failure with hypoxia Code(s): J96.21 - ACUTE AND CHRONIC RESPIRATORY FAILURE WITH HYPOXIA Status: Acute (4) HTN (hypertension) Code(s): I10 - ESSENTIAL (PRIMARY) HYPERTENSION Status: Chronic Qualifiers: Hypertension type: essential hypertension Qualified Code(s): I10 - Essential (primary) hypertension - Plan Patient on Nebs, Steroids, Oxygen, Rocephin and Azithromycin since 08/04/2020. Transitioned to oral Doxy and Prednisone 08/06/2020. Pulmonology consulted and following. PT got patient ambulating yesterday. Will d/c home today with home health. DVT Proph: Lovenox GI Proph: Protonix
[2020-08-07] MEDS: predniSONE 20 MG TAB PO SCH (08:04)
[2020-08-07] MEDS: Doxycycline 100 MG CAP PO SCH ×2 (08:04→20:52)
[2020-08-07] MEDS: Enoxaparin Sodium 40 MG/0.4 ML SYRINGE SC SCH (08:04)
[2020-08-07] MEDS: Carvedilol 3.125 MG TAB PO SCH ×2 (08:04→18:02)
--- NOTE | 2020-08-07 16:29 | EKG ---
Test Reason : Blood Pressure : / mmHG Vent. Rate : 090 BPM Atrial Rate : 090 BPM P-R Int : 144 ms QRS Dur : 084 ms QT Int : 336 ms P-R-T Axes : 055 074 054 degrees QTc Int : 411 ms Normal sinus rhythm Normal ECG Confirmed by BRUNO GARCIA DO ([id number]), continuity editor ALVINO RAMIREZ ([id number]) on 08/07/2020 4:29:14 PM Referred By: Confirmed By:BRUNO GARCIA DO
--- NOTE | 2020-08-07 17:40 | PRG ---
DATE OF SERVICE: 08/07/2020 SUBJECTIVE: Mr. Bowens states he is back near his baseline, although he does not think he can get up and walk across the room to get his walker without assistance. I am hesitant to believe that it is safe for him to go home. OBJECTIVE: VITAL SIGNS: He is afebrile, heart rate is 80, respiratory rate is in the 20s, oximetry is 92% on 3 L, blood pressure 139/71. LUNGS: Distant, clear. HEART: Regular rhythm. ABDOMEN: Soft. LABORATORY DATA: White count 11.4, hemoglobin 10.3, platelets 210. Sodium 135, potassium 4.9, chloride 95, bicarb 35, BUN 18, creatinine 0.59. IMPRESSION: 1. Chronic obstructive pulmonary disease exacerbation. 2. Diastolic dysfunction by echocardiogram. 3. Obesity. 4. Severe deconditioning. 5. Chronic hypoxemic respiratory failure, probably should not go home until he stay at least stable on his feet or should be considered for rehab. Job ID: [id number]
[2020-08-07] MEDS: Acetaminophen 325 MG TAB PO PRN (20:52)
[2020-08-07] MEDS: Melatonin 3 MG TAB PO PRN (20:53)
[2020-08-08] MEDS: Acetaminophen 325 MG TAB PO PRN (04:08)
[2020-08-08] MEDS: Mometasone 200 MCG/Formoterol 5 MCG 120 PUFF INHALER INH SCH ×2 (07:41→18:30)
[2020-08-08] MEDS: predniSONE 20 MG TAB PO SCH (08:29)
[2020-08-08] MEDS: Carvedilol 3.125 MG TAB PO SCH ×2 (08:29→16:44)
[2020-08-08] MEDS: Enoxaparin Sodium 40 MG/0.4 ML SYRINGE SC SCH (08:30)
[2020-08-08] MEDS: Doxycycline 100 MG CAP PO SCH ×2 (08:30→20:31)
[2020-08-08] MEDS ORDERED: Sodium Chloride 0.65% Nasal 44 ML BOT EA NARE PRN (10:21)
[2020-08-08] MEDS ORDERED: Cepastat Lozenges 1 LOZ PO PRN (10:21)
[2020-08-08] MEDS ORDERED: Diabetic Tussin 200 MG/10 ML UDCUP PO PRN (10:21)
[2020-08-08] MEDS ORDERED: Bisacodyl 5 MG TAB PO PRN (10:21)
[2020-08-08] MEDS ORDERED: hydrALAZINE 20 MG/ML VIAL SLOW IVP PRN (10:21)
[2020-08-08] MEDS ORDERED: Loperamide HCl 2 MG CAP PO PRN (10:21)
[2020-08-08] MEDS ORDERED: HYDROcodone/Acetaminophen 5/325 mg Tablet PO PRN (10:21)
[2020-08-08] MEDS ORDERED: Ondansetron PF 4 MG/2 ML Vial IVP PRN (10:21)
[2020-08-08] MEDS ORDERED: Ondansetron ODT 4 MG TAB PO PRN (10:21)
[2020-08-08] MEDS ORDERED: Benzonatate 100 MG CAP PO PRN (10:21)
[2020-08-08] MEDS ORDERED: Senokot S 8.6-50 MG TAB PO PRN (10:21)
[2020-08-08] MEDS ORDERED: Calcium Carbonate 500 MG ChewTAB PO PRN (10:21)
[2020-08-08] MEDS ORDERED: Loratadine 10 MG TAB PO PRN (10:21)
--- NOTE | 2020-08-08 10:22 | PDOC.HOSPP ---
- Subjective Encounter Date: 08/08/20 Encounter Time: 08:20 Subjective: Patient is overall feeling better, but when I noticed that whenever he was talking and exerting himself his oxygen saturation was going below 85%, currently he is on 4 to 5 L of nasal cannula oxygen, - Objective Vital Signs & Weight: Vital Signs (12 hours) Temp Pulse Resp BP BP Pulse Ox 08/08/20 07:39 89 16 90 L 08/08/20 07:30 98.3 F 83 20 108/65 93 L 08/08/20 04:13 94 L 08/08/20 04:02 98.6 F 98 16 130/69 72 L 08/08/20 02:32 88 16 08/08/20 00:44 98.6 F 68 18 117/68 96 08/07/20 22:23 92 16 97 Weight Admit Weight 230 lb 6.4 oz Weight 230 lb 6.4 oz I&O: 08/07/20 08/08/20 08/09/20 06:59 06:59 06:59 Intake Total 480 1200 Output Total 1320 1375 Balance -840 -175 Result Diagrams: 08/07/20 04:39 08/07/20 04:39 Radiology Reviewed by me: Yes (All radiological investigations reviewed) EKG Reviewed by me: Yes Hospitalist ROS - Review of Systems Constitutional: reports: weakness. denies: fever, chills, sweats, malaise, other Respiratory: reports: shortness of breath, SOB with excertion. denies: cough, dry, hemoptysis, pleuritic pain, sputum, wheezing, other Cardiovascular: denies: chest pain, palpitations, orthopnea, paroxysmal noc. dyspnea, edema, light headedness, other Gastrointestinal: denies: nausea, vomiting, abdominal pain, diarrhea, constipation, melena, hematochezia, other Genitourinary: denies: dysuria, frequency, incontinence, hematuria, retention, other Musculoskeletal: denies: neck pain, shoulder pain, arm pain, back pain, hand pain, leg pain, foot pain, other - Medication Medications: Active Medications Generic Name Dose Route Start Last Admin Trade Name Freq PRN Reason Stop Dose Admin Acetaminophen 650 mg 08/07/20 19:02 08/08/20 04:08 Acetaminophen 325 Mg Tab PO 650 mg Q6H PRN Administration Headache/Fever or Pain Albuterol/Ipratropium 3 ml 08/04/20 22:30 08/08/20 07:39 Ipratropium/Albuterol Sulfate 3 Ml Neb NEB 3 ml [id number] KATHY Administration Carvedilol 3.125 mg 08/06/20 17:00 08/08/20 08:29 Carvedilol 3.125 Mg Tab PO 3.125 mg BID-WM KATHY Administration Doxycycline Hyclate 100 mg 08/05/20 21:00 08/08/20 08:30 Doxycycline 100 Mg Cap PO 08/12/20 21:01 100 mg BID KATHY Administration Enoxaparin Sodium 40 mg 08/05/20 09:00 08/08/20 08:30 Enoxaparin Sodium 40 Mg/0.4 Ml Syringe SC 40 mg 0900 KATHY Administration Melatonin 3 mg 08/05/20 23:12 08/07/20 20:53 Melatonin 3 Mg Tab PO 3 mg HS PRN Administration Insomnia Mometasone Furoate/Formoterol Fumar 2 puff 08/05/20 18:30 08/08/20 07:41 Mometasone 200 Mcg/Formoterol 5 Mcg 120 Puff Inhaler INH 2 puff BID-RT KATHY Administration Pantoprazole Sodium 40 mg 08/05/20 09:00 08/08/20 08:30 Pantoprazole 40 Mg Tab PO 40 mg DAILY KATHY Administration Prednisone 40 mg 08/07/20 08:00 08/08/20 08:29 Prednisone 20 Mg Tab PO 40 mg QAM-WM KATHY Administration - Exam General Appearance: NAD, awake alert Eye: PERRL, anicteric sclera ENT: normocephalic atraumatic, no oropharyngeal lesions Neck: symmetric, no JVD, no thyromegaly Heart: RRR, no murmur, no gallops, no rubs Respiratory: no wheezes, no rales, no ronchi Gastrointestinal: soft, non-tender, non-distended, normal bowel sounds Extremities: no clubbing, no edema Skin: normal turgor, no lesions Neurological: no focal deficits Musculoskeletal: normal tone, normal strength Psychiatric: normal affect, normal behavior, A&O x 3 Hosp A/P (1) Acute and chronic respiratory failure with hypoxia Code(s): J96.21 - ACUTE AND CHRONIC RESPIRATORY FAILURE WITH HYPOXIA Status: Acute (2) COPD exacerbation Code(s): J44.1 - CHRONIC OBSTRUCTIVE PULMONARY DISEASE W (ACUTE) EXACERBATION Status: Acute (3) Pneumonia Code(s): J18.9 - PNEUMONIA, UNSPECIFIED ORGANISM Status: Acute (4) HTN (hypertension) Code(s): I10 - ESSENTIAL (PRIMARY) HYPERTENSION Status: Chronic Qualifiers: Hypertension type: essential hypertension Qualified Code(s): I10 - Essential (primary) hypertension (5) Anemia, normocytic normochromic Code(s): D64.9 - ANEMIA, UNSPECIFIED Status: Chronic (6) Obesity (BMI 30.0-34.9) Code(s): E66.9 - OBESITY, UNSPECIFIED Status: Chronic - Plan old records reviewed/req, continue antibiotics, respiratory therapy Plan Continue albuterol, Dulera, empiric antibiotic doxycycline, steroid Overall patient is doing better than his oxygen saturation drops with exertion, Pulmonology following Medication reviewed and continued per symptomatic and supportive care Continue physical therapy Given high oxygen requirement up to 4 to 5 L, will observe him additional day in hospital
[2020-08-08] MEDS: Melatonin 3 MG TAB PO PRN (20:31)
[2020-08-09 05:13] LABS: #Eosinphils 0.1 thou/uL (0.0-0.7); #Lymphocytes 1.5 thou/uL (1.20-3.40); #Neutrophils 8.9 thou/uL (1.40-6.50); %Basophils 0.3 % (0.0-1.0); %Eosinophils 0.8 % (0.0-10.0); %Lymphocytes 12.7 % (21.0-51.0); %Monocytes 9.1 % (0.0-10.0); %Neutrophils 77.2 % (42.0-75.0); Hemoglobin 10.8 g/dL (14.0-18.0); Mean Corpuscular HGB CONC 32.3 g/dL (32.0-36.0); Mean Corpuscular Hemoglobin 30.6 pg (27.0-31.0); Mean Corpuscular Volume 94.7 fL (78.0-98.0); Platelet Count 230 thou/uL (130-400); RBC Distribution Width 14.1 % (11.5-14.5); Red Blood Cell (RBC) Count 3.52 mill/uL (4.70-6.10); White Blood Cell (WBC) Count 11.5 thou/uL (4.8-10.8)
[2020-08-09 05:31] LABS: BUN (Urea Nitrogen) 22 mg/dL (8.4-25.7); Calc. Creatinine Clearance 172 mL/min (70-130); Calcium 8.4 mg/dL (7.8-10.44); Estimated GFR-MDRD Greater than 90; Glucose 85 mg/dL (80-115)
[2020-08-09 05:39] LABS: Anion Gap 16 mmol/L (10-20); Carbon Dioxide 32 mmol/L (23-31); Chloride 93 mmol/L (98-107); Potassium 4.6 mmol/L (3.5-5.1); Sodium 136 mmol/L (136-145)
[2020-08-09] MEDS: Mometasone 200 MCG/Formoterol 5 MCG 120 PUFF INHALER INH SCH (08:34)
[2020-08-09] MEDS: Carvedilol 3.125 MG TAB PO SCH (08:52)
[2020-08-09] MEDS: Enoxaparin Sodium 40 MG/0.4 ML SYRINGE SC SCH (08:52)
[2020-08-09] MEDS: Doxycycline 100 MG CAP PO SCH (08:52)
[2020-08-09] MEDS: predniSONE 20 MG TAB PO SCH (08:52)
--- NOTE | 2020-08-09 09:35 | PRG ---
DATE OF SERVICE: 08/09/2020 SUBJECTIVE: Mr. Bowens feels better and wants to go home. OBJECTIVE: VITAL SIGNS: Temperature 98.5, pulse 84, respirations 20, O2 saturation 98% on 3 L. HEENT: Unremarkable. NECK: No adenopathy or JVD. LUNGS: Fairly clear anteriorly. CARDIAC: S1, S2. Regular. ABDOMEN: Soft. EXTREMITIES: No edema. LABORATORY DATA: White blood cell count 11.5, hematocrit 33, and platelet count 230. Sodium 136, potassium 4.6, BUN 22, creatinine 0.6, glucose 85. ASSESSMENT: Chronic obstructive pulmonary disease with exacerbation-patient looks to be back to his baseline status. RECOMMENDATION: I would stop antibiotics after 7 total days. Wean prednisone back to his usual dose over the next 2 weeks. He is safe to go home from my standpoint. Job ID: [id number]
--- NOTE | 2020-08-09 10:32 | PDOC.DS.DS ---
Provider - Provider Date of Admission: 08/04/20 20:00 Date of Discharge: 08/09/20 Admitting Provider: Geoff Ward MD Consultations: Pulmonary Primary Care Physician: Ella Williamson MD Course - Hospital Course Hospital Course: 70-year-old male who has underlying history of COPD and chronic respiratory failure who was admitted for increasing shortness of breath, patient was found with acute on chronic hypoxic respiratory failure. Patient was evaluated by pulmonology during this admission. Patient was optimally treated for COPD exacerbation with steroid and respiratory therapy. With the time patient condition improved to normal. During this admission patient also had CT angiography which was negative for PE but it did show chronic changes with mucous plugging and some infiltration. Patient was also given empiric antibiotic therapy while in hospital. 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 He will follow-up with his primary care physician and special trackwork blacksmith. Pulmonology evaluated this patient and they cleared him for discharge. Resuscitation Status: 08/04/20 21:55 Resuscitation Status Routine Resuscitation Status: FULL: Full Resuscitation - Labs Lab Results: 08/09/20 04:52 08/09/20 04:52 Abnormal Lab Results - Last 48 hrs 08/09/20 04:52: Chloride 93 L, Carbon Dioxide 32 H, Creatinine 0.60 L 08/09/20 04:52: WBC 11.5 H, RBC 3.52 L, Hgb 10.8 L, Hct 33.3 L, Neutrophils % 77.2 H, Lymphocytes % 12.7 L, Neutrophils # 8.9 H, Monocytes # 1.0 H - Diagnostic Interpretation Other Additional comments: Chest x-ray showed emphysema and interstitial markings CT angiography showed no evidence of pulmonary embolism, mediastinal and bilateral hilar lymphadenopathy, right lower lobe mucous plugging and volume loss, reticulonodular density in the right lower lobe, left upper lobe pulmonary nodule, hiatal hernia Abdominal ultrasound showed small cyst in left lobe of liver, Echocardiography showed EF 55 to 60% - Physical Exam Vitals: Vital Signs (12 hours) Temp Pulse Resp BP BP Pulse Ox 08/09/20 08:35 90 L 08/09/20 08:34 84 20 90 L 08/09/20 07:20 98.5 F 79 20 133/80 91 L 08/09/20 03:40 97.6 F 74 20 126/72 99 08/09/20 02:09 96 08/09/20 02:04 66 16 96 08/09/20 00:00 64 20 Weight Admit Weight 230 lb 6.4 oz Weight 230 lb 6.4 oz Physical Exam: The patient was seen and examined on the day of discharge. General patient is currently alert awake no acute distress Head normocephalic atraumatic Neck supple no JVD no meningeal signs of rotation Lungs without any rhonchi rales Cardiac S1-S2 regular no murmur no gallop no rub Abdomen soft, bowel sounds present, nontender nondistended no organomegaly no mass Extremities no edema Neurology nonfocal examination Problem - Problem (1) Acute and chronic respiratory failure with hypoxia Code(s): J96.21 - ACUTE AND CHRONIC RESPIRATORY FAILURE WITH HYPOXIA Status: Acute (2) COPD exacerbation Code(s): J44.1 - CHRONIC OBSTRUCTIVE PULMONARY DISEASE W (ACUTE) EXACERBATION Status: Acute (3) Pneumonia Code(s): J18.9 - PNEUMONIA, UNSPECIFIED ORGANISM Status: Acute (4) HTN (hypertension) Code(s): I10 - ESSENTIAL (PRIMARY) HYPERTENSION Status: Chronic Qualifiers: Hypertension type: essential hypertension Qualified Code(s): I10 - Essential (primary) hypertension (5) Anemia, normocytic normochromic Code(s): D64.9 - ANEMIA, UNSPECIFIED Status: Chronic (6) Obesity (BMI 30.0-34.9) Code(s): E66.9 - OBESITY, UNSPECIFIED Status: Chronic Plan - Discharge Medications Prescriptions: predniSONE 10 mg PO BID-WM #60 tab Doxycycline [Vibramycin] 100 mg PO BID #14 cap Home Medications: Medication Instructions Recorded Confirmed Type Fluticasone/Vilanterol [Breo 1 inh IH DAILY 08/05/20 08/05/20 History Ellipta] Lisinopril [Zestril] 2.5 mg PO DAILY 08/05/20 08/05/20 History Ventolin HFA Inhaler 2 puff INH Q6HR PRN 08/05/20 08/05/20 History Doxycycline [Vibramycin] 100 mg PO BID #14 cap 08/07/20 Rx predniSONE 10 mg PO BID-WM #60 tab 08/09/20 Rx Allergies: No Known Drug Allergies Allergy (Verified 08/05/20 02:56) per pt - Discharge Instructions Activity:: Activity as Tolerated Nourishment:: Heart Healthy Diet, Low Sodium Diet Therapies:: Not Applicable Equipment/Supplies:: Oxygen (continue home 3L NC) IV Therapy:: Not Applicable - Follow up Plan Referrals: Ella Williamson MD [Primary Care Provider] - Jp Bird MD [Active] - 3 Days Disposition: HOME Quality - Care Measures CORE MEASURES:: N/A
[2020-08-09 12:57] VITALS: BP 115/68; TEMP 97.7
--- NOTE | 2020-08-10 06:54 | DIS ---
DATE OF ADMISSION: 08/04/2020 DATE OF DISCHARGE: 08/09/2020 PRIMARY CARE PHYSICIAN: Ella Williamson MD REASON FOR ADMISSION: Shortness of breath and hypoxia with ambulation. DIAGNOSES ON DISCHARGE: 1. Chronic obstructive pulmonary disease exacerbation, improved. 2. Pneumonia. 3. [id number] respiratory failure with hypoxia, improved. 4. Hypertension. PROCEDURES: 1. CT scan of the chest without contrast showing no evidence for pulmonary embolism. There is some mediastinal bilateral hilar lymphadenopathy, also some filling defects in right lower lobe bronchi with consolidation of the right lung base could be related to mucus plugging and volume loss, but also possible pneumonia. Also has reticulonodular disease in the right lower lobe suggestive of inflammatory process. Does have a left upper lobe pulmonary nodule that needs to be followed up and has hypodense lesion in the left hepatic lobe. 2. Ultrasound of the abdomen showing a small simple cyst in the left lobe of the liver. No followup needed. Otherwise, negative ultrasound. 3. Echocardiogram showing ejection fraction of 55% to 60% and diastolic dysfunction. CONSULTATIONS: Pulmonology, Dr. Lama. SUMMARY OF HOSPITAL COURSE: This is a 70-year-old white male with a known history of COPD, on chronic oxygen 3 L at home, sees Dr. Bird. His pulse ox has been hanging a little bit low at 89% to 90% at rest and then dipping down to 65% with ambulation recently. He was seen by Dr. Bird and he had been started on antibiotics and steroids about a month ago, but has not been improving and has gotten significantly worse recently as far as his dyspnea with exertion and hypoxia with ambulation. In the emergency room, the patient was saturating well on 3 L nasal cannula. He had CT scan done as above. The patient was started on nebs, steroids, and antibiotics. He had marked improvement during hospitalization. Dr. Lama was consulted. He was able to ambulate on the day of discharge in the hallway with physical therapy and by the time, he came back to the room, his O2 saturations had only dropped to 87%. They have been in the mid 90s around 93% to 94% on 2.5 to 3 L today and so he is being discharged home. DISCHARGE MANAGEMENT: Discharged home. FOLLOWUP: With Dr. Williamson as needed and with Dr. Bird early next week. ACTIVITY: As tolerated. DIET: Healthy heart and low-sodium diet. THERAPY: Continue oxygen at 2 to 3 L at rest and with ambulation. DISCHARGE MEDICATIONS: 1. Doxycycline 100 mg twice a day 14 capsules dispensed. 2. Prednisone 20 mg 2 tablets daily for one more day for a total of 5 days of steroids. 3. Breo Ellipta one inhalation daily. 4. Lisinopril 2.5 mg daily. 5. Ventolin inhaler as needed. TIME SPENT: Arranging the details of this discharge took 32 minutes. Job ID: [id number]
== END 2020-08-09 15:17 | disposition home or self-care (01) | DRG 193 ==
LOC: ERS 15:18 → 2SW 20:00
PROVIDERS: ADMIT Internal Medicine; ATTEND Internal Medicine
DX: J18.9 Pneumonia, unspecified organism (principal); J96.21 Acute and chronic respiratory failure with hypoxia; J44.0 Chronic obstructive pulmonary disease with (acute) lower respiratory infection; J44.1 Chronic obstructive pulmonary disease with (acute) exacerbation; I10 Essential (primary) hypertension; E66.01 Morbid (severe) obesity due to excess calories; D64.9 Anemia, unspecified; R53.81 Other malaise; Z68.32 Body mass index [BMI] 32.0-32.9, adult; Z87.891 Personal history of nicotine dependence; Z79.899 Other long term (current) drug therapy; Z99.81 Dependence on supplemental oxygen; Z20.828 Contact with and (suspected) exposure to other viral communicable diseases
CPT/HCPCS: 36415; 71045; 71275; 80048; 80053; 81003; 84484; 85025; 85379; 87635; 93005; 93306; 93975; 94640; 94664; 94760; J0456; J0696; J1650; J2920; J2930; J3490; J7512; J7620; Q9967; U0002; U0003

== ENCOUNTER 2020-08-24 14:45 | Outpatient (CLI) | payer MEDICARE ==
--- NOTE | 2020-08-24 15:33 | ULT ---
EXAM: Left lower extremity venous Doppler US HISTORY: left lower extremity edema and pain FINDINGS: Grayscale, color-flow, Doppler evaluation, spectral analysis of the left lower extremity venous struc tures is performed with 2-D imaging. The left common femoral, superficial femoral, popliteal, posterior tibial, proximal greater saphenous and profunda femoral veins are imaged. There is normal luminal compressibility, flow, and augmentation the visualized deep venous structures of the left lower extremity. IMPRESSION: No evidence of a deep vein thrombosis in the left lower extremity.
== END 2020-08-24 14:46 | disposition home or self-care (01) ==
LOC: BICULT 14:45
PROVIDERS: ATTEND Family Medicine
DX: M25.562 Pain in left knee (principal)

== ENCOUNTER 2020-09-08 12:04 | Outpatient (CLI) | payer MEDICARE ==
--- NOTE | 2020-09-08 13:53 | RAD ---
PA AND LATERAL CHEST: 09/08/20 HISTORY: Dyspnea. COMPARISON: 08/04/20 exam. Heart size is within normal limits. There are atherosclerotic changes of the aorta. Chronic lung ackerman ges are stable. IMPRESSION: Chronic lung change. Stable exam. POS: CONSTANCE
== END 2020-09-08 12:05 | disposition home or self-care (01) ==
LOC: BICRAD 12:04
PROVIDERS: ATTEND Internal Medicine Critical Care Medicine
DX: R06.00 Dyspnea, unspecified (principal)
CPT/HCPCS: 71046

== ENCOUNTER 2021-09-05 16:13 | Inpatient (IN) | payer MEDICARE ==
[2021-09-05 16:48] LABS: #Basophils 0.1 thou/uL (0.0-0.2); #Eosinphils 0.1 thou/uL (0.0-0.7); #Lymphocytes 1.7 thou/uL (1.20-3.40); #Monocytes 0.9 thou/uL (0.11-0.59); #Neutrophils 10.7 thou/uL (1.40-6.50); %Basophils 0.4 % (0.0-1.0); %Eosinophils 1.1 % (0.0-10.0); %Lymphocytes 12.4 % (21.0-51.0); %Monocytes 6.5 % (0.0-10.0); %Neutrophils 79.6 % (42.0-75.0); Hemoglobin 11.8 g/dL (14.0-18.0); Mean Corpuscular HGB CONC 30.3 g/dL (32.0-36.0); Mean Corpuscular Hemoglobin 29.2 pg (27.0-31.0); Mean Corpuscular Volume 96.2 fL (78.0-98.0); Mean Platelet Volume 7.3 fL (7.4-10.4); Platelet Count 197 thou/uL (130-400); RBC Distribution Width 13.8 % (11.5-14.5); Red Blood Cell (RBC) Count 4.05 mill/uL (4.70-6.10); White Blood Cell (WBC) Count 13.4 thou/uL (4.8-10.8)
[2021-09-05] MEDS ORDERED: Aspirin Chewable 81 MG TAB ONE (16:48)
[2021-09-05] MEDS ORDERED: Heparin 25,000 units/D5W 500 ML ONE (16:48)
[2021-09-05] MEDS ORDERED: Heparin 10,000 UNITS/ 10 ML VIAL ONE (17:02)
[2021-09-05] MEDS ORDERED: Albuterol Sulfate 2.5 mg/3 ml Neb ONE ×2 (17:26)
[2021-09-05] MEDS ORDERED: Albuterol 200 PUFF (6.7GM INHALER) ONE (17:30)
[2021-09-05 17:31] LABS: Actual Bicarbonate (HCO3a) 42.1 mEq/L (22-28); Analyzer IN Cardio ER; Base Excess (BEa) 13.8 mEq/L (-2.0 to +3.0); Calcium, Ionized (arterial) 1.13 mmol/L (1.12-1.30); Carboxyhemoglobin (COHb) 0.6 gm% (0.0-3.0); Hemoglobin (Hb) 11.9 g/dL (14.0-18.0); O2 Tension (PaO2), arterial 60.7 mmHg (> 70.0); pH, Arterial 7.37 (7.35-7.45)
[2021-09-05] MEDS ORDERED: Magnesium 2 GM/50 ML BAG (IN WATER) ONE (17:35)
[2021-09-05] MEDS ORDERED: methylPREDNISolone Sod Succ/PF 125 MG/2 ML VIAL ONE (17:35)
[2021-09-05 17:36] LABS: ALT (SGPT) 11 U/L (8-55); AST (SGOT) 29 U/L (5-34); Albumin 3.4 g/dL (3.4-4.8); Alkaline Phosphatase 65 U/L (40-110); Anion Gap 13 mmol/L (10-20); BUN (Urea Nitrogen) 22 mg/dL (8.4-25.7); Bilirubin, Total 0.4 mg/dL (0.2-1.2); Calc. Creatinine Clearance 0 mL/min (70-130); Calcium 8.5 mg/dL (7.8-10.44); Carbon Dioxide 35 mmol/L (23-31); Chloride 90 mmol/L (98-107); Globulin 3.3 g/dL (2.4-3.5); Glucose 102 mg/dL (80-115); Potassium 6.2 mmol/L (3.5-5.1); Protein, Total 6.7 g/dL (5.8-8.1); Sodium 132 mmol/L (136-145)
[2021-09-05 17:39] LABS: ALV-art Gradient 559.675 mmHg (0-20); CO2 Tension 74.1 mmHg (35.0-45.0); Puncture Site RRA
[2021-09-05 17:49] LABS: Prothrombin Time 13.6 sec (12.0-14.7)
[2021-09-05 17:51] LABS: PTT 78.2 sec (22.9-36.1)
[2021-09-05] MEDS ORDERED: Sodium Bicarb 50 MEQ/50 ML Abboject 8.4% SYRINGE ONE (17:51)
[2021-09-05] MEDS ORDERED: Dextrose 50% Abboject 50 ML SYRINGE ONE ×2 (17:51→18:00)
[2021-09-05] MEDS ORDERED: Insulin Regular 300 UNITS/3 ML VIAL ONE (17:51)
[2021-09-05] MEDS ORDERED: Calcium Chloride 1 GM/10 ML Abboject SYRINGE ONE (17:51)
[2021-09-05 18:44] LABS: SARS-CoV-2 NAA Rapid Test Not Detected (NotDetected)
[2021-09-05] MEDS ORDERED: Ondansetron ODT 4 MG TAB PO PRN (20:34)
[2021-09-05] MEDS ORDERED: Acetaminophen 325 MG TAB PO PRN (20:34)
[2021-09-05] MEDS ORDERED: Ondansetron PF 4 MG/2 ML Vial IVP PRN (20:34)
[2021-09-05] MEDS ORDERED: Acetaminophen 650 MG Suppository PR PRN (20:34)
[2021-09-05] MEDS ORDERED: cefTRIAXone\\ROCEPHIN 1 GM in Sodium Chloride 0.9% 100 ML IVPB SCH (20:45)
[2021-09-05 21:30] LABS: BUN (Urea Nitrogen) 18 mg/dL (8.4-25.7); Calc. Creatinine Clearance 0 mL/min (70-130); Calcium 9.6 mg/dL (7.8-10.44); Glucose 121 mg/dL (80-115)
[2021-09-05 21:39] LABS: Anion Gap 14 mmol/L (10-20); Carbon Dioxide 38 mmol/L (23-31); Chloride 90 mmol/L (98-107); Potassium 4.6 mmol/L (3.5-5.1); Sodium 137 mmol/L (136-145)
[2021-09-05 23:38] VITALS: BMI 27.1
[2021-09-05 23:54] LABS: Troponin I 0.012 ng/mL (< 0.028)
[2021-09-06] MEDS: Nicotine 14 MG PATCH TD SCH ×2 (00:11→20:45)
[2021-09-06] MEDS: cefTRIAXone\\ROCEPHIN 1 GM in Sodium Chloride 0.9% 100 ML IVPB SCH (00:11)
[2021-09-06 03:35] LABS: Bacteria/HPF None Seen HPF (None Seen); Bilirubin Negative (Negative); Blood, Urine Negative (Negative); Clarity Turbid (Clear); Glucose, Urine (Dipstick) 200 mg/dL (Negative); Ketone, Urine Negative (Negative); Leukocyte Negative Leu/uL (Negative); Nitrite Negative (Negative); Protein, Urine (Dipstick) 20 mg/dL (Neg-Trace); Specific Gravity, Urine 1.034 (1.002-1.036); Squamous Epithelial 0-3 HPF (0-3); Urobilinogen Normal mg/dL (Less than 2); WBC/HPF None Seen HPF (0-3)
[2021-09-06 03:36] LABS: Urine Culture Reflex No No
[2021-09-06 04:53] LABS: Hemoglobin A1c 4.7 % (4.0-6.0)
[2021-09-06 04:54] LABS: #Basophils 0.1 thou/uL (0.0-0.2); #Lymphocytes 0.2 thou/uL (1.20-3.40); #Monocytes 0.2 thou/uL (0.11-0.59); %Basophils 0.6 % (0.0-1.0); %Eosinophils 0.1 % (0.0-10.0); %Lymphocytes 2.1 % (21.0-51.0); %Monocytes 2.2 % (0.0-10.0); Hemoglobin 11.1 g/dL (14.0-18.0); Mean Corpuscular HGB CONC 29.9 g/dL (32.0-36.0); Mean Corpuscular Hemoglobin 28.8 pg (27.0-31.0); Mean Corpuscular Volume 96.4 fL (78.0-98.0); Mean Platelet Volume 7.7 fL (7.4-10.4); Platelet Count 179 thou/uL (130-400); RBC Distribution Width 13.8 % (11.5-14.5); Red Blood Cell (RBC) Count 3.86 mill/uL (4.70-6.10); White Blood Cell (WBC) Count 10.5 thou/uL (4.8-10.8)
[2021-09-06 05:11] LABS: BUN (Urea Nitrogen) 16 mg/dL (8.4-25.7); Calc. Creatinine Clearance 149 mL/min (70-130); Calcium 9.1 mg/dL (7.8-10.44); Glucose 124 mg/dL (80-115)
[2021-09-06 05:20] LABS: Anion Gap 14 mmol/L (10-20); Carbon Dioxide 36 mmol/L (23-31); Chloride 92 mmol/L (98-107); Sodium 137 mmol/L (136-145)
[2021-09-06] MEDS: methylPREDNISolone Sod Succ 40 MG VIAL IVP SCH (09:03)
[2021-09-06] MEDS: Enoxaparin Sodium 40 MG/0.4 ML SYRINGE SC SCH (09:03)
[2021-09-07] MEDS: cefTRIAXone\\ROCEPHIN 1 GM in Sodium Chloride 0.9% 100 ML IVPB SCH (01:34)
[2021-09-07] MEDS: methylPREDNISolone Sod Succ 40 MG VIAL IVP SCH (08:31)
[2021-09-07] MEDS: Enoxaparin Sodium 40 MG/0.4 ML SYRINGE SC SCH (08:31)
[2021-09-07] MEDS ORDERED: Polyethylene Glycol 3350 17 GM Packet PO SCH ×2 (12:26→12:45)
[2021-09-07] MEDS ORDERED: Docusate 100 MG CAP PO SCH ×2 (12:26→12:45)
[2021-09-07] MEDS ORDERED: Bisacodyl 10 MG SUPP PR PRN (12:26)
[2021-09-07] MEDS: Acetylcysteine 20% 200 MG/ML 30 ML VIAL INH SCH ×3 (15:09→22:35)
[2021-09-07] MEDS ORDERED: Piperacillin/Tazobactam 3.375 GM in Sodium Chloride 0.9% 100 ML IVPB SCH (16:00)
[2021-09-07] MEDS: FLU VACC QS2021-22(65YR UP)/PF 240 MCG/0.7 ML SYRINGE IM ONE (18:35)
[2021-09-07] MEDS: Mometasone 200 MCG/Formoterol 5 MCG 120 PUFF INHALER INH SCH (18:58)
[2021-09-07] MEDS: Piperacillin/Tazobactam 3.375 GM in Sodium Chloride 0.9% 100 ML IVPB SCH (21:07)
[2021-09-07] MEDS: Nicotine 14 MG PATCH TD SCH (21:08)
[2021-09-07] MEDS: Docusate 100 MG CAP PO SCH (21:15)
[2021-09-08] MEDS ORDERED: Metoprolol Tartrate 5 MG/5 ML VIAL IVP SCH (03:15)
[2021-09-08 03:30] LABS: #Eosinphils 0.1 thou/uL (0.0-0.7); #Monocytes 1.1 thou/uL (0.11-0.59); #Neutrophils 14.3 thou/uL (1.40-6.50); %Eosinophils 0.3 % (0.0-10.0); %Lymphocytes 6.3 % (21.0-51.0); %Monocytes 6.7 % (0.0-10.0); %Neutrophils 86.7 % (42.0-75.0); Mean Corpuscular HGB CONC 31.1 g/dL (32.0-36.0); Mean Corpuscular Volume 96.3 fL (78.0-98.0); Platelet Count 180 thou/uL (130-400); RBC Distribution Width 14.2 % (11.5-14.5); Red Blood Cell (RBC) Count 4.02 mill/uL (4.70-6.10); White Blood Cell (WBC) Count 16.5 thou/uL (4.8-10.8)
[2021-09-08 04:21] LABS: ALT (SGPT) 11 U/L (8-55); AST (SGOT) 13 U/L (5-34); Alkaline Phosphatase 57 U/L (40-110); Anion Gap 11 mmol/L (10-20); BUN (Urea Nitrogen) 15 mg/dL (8.4-25.7); Bilirubin, Total 0.8 mg/dL (0.2-1.2); Calc. Creatinine Clearance 155 mL/min (70-130); Calcium 8.9 mg/dL (7.8-10.44); Carbon Dioxide 34 mmol/L (23-31); Chloride 94 mmol/L (98-107); Globulin 2.9 g/dL (2.4-3.5); Glucose 102 mg/dL (80-115); Potassium 4.4 mmol/L (3.5-5.1); Protein, Total 5.9 g/dL (5.8-8.1); Sodium 135 mmol/L (136-145)
[2021-09-08] MEDS: Piperacillin/Tazobactam 3.375 GM in Sodium Chloride 0.9% 100 ML IVPB SCH ×3 (04:47→20:11)
[2021-09-08] MEDS: Mometasone 200 MCG/Formoterol 5 MCG 120 PUFF INHALER INH SCH ×2 (06:32→19:39)
[2021-09-08] MEDS: Acetylcysteine 20% 200 MG/ML 30 ML VIAL INH SCH ×3 (06:32→19:38)
[2021-09-08] MEDS: methylPREDNISolone Sod Succ 40 MG VIAL IVP SCH (09:39)
[2021-09-08] MEDS: Enoxaparin Sodium 40 MG/0.4 ML SYRINGE SC SCH (09:39)
[2021-09-08] MEDS: Docusate 100 MG CAP PO SCH ×2 (09:41→20:12)
[2021-09-08] MEDS: Polyethylene Glycol 3350 17 GM Packet PO SCH (09:41)
[2021-09-08 11:27] LABS: Actual Bicarbonate (HCO3a) 37.9 mEq/L (22-28); Base Excess (BEa) 11.1 mEq/L (-2.0 to +3.0); Calcium, Ionized (arterial) 1.15 mmol/L (1.12-1.30); Carboxyhemoglobin (COHb) 0.2 gm% (0.0-3.0); Hemoglobin (Hb) 12.3 g/dL (14.0-18.0); pH, Arterial 7.42 (7.35-7.45)
[2021-09-08 11:29] LABS: CO2 Tension 60.4 mmHg (35.0-45.0); O2 Tension (PaO2), arterial 58.1 mmHg (> 70.0); Puncture Site RRA
[2021-09-08] MEDS: Nicotine 14 MG PATCH TD SCH (20:32)
[2021-09-09] MEDS: Acetylcysteine 20% 200 MG/ML 30 ML VIAL INH SCH ×4 (01:52→19:19)
[2021-09-09] MEDS: Piperacillin/Tazobactam 3.375 GM in Sodium Chloride 0.9% 100 ML IVPB SCH ×3 (04:33→20:53)
[2021-09-09] MEDS: Mometasone 200 MCG/Formoterol 5 MCG 120 PUFF INHALER INH SCH ×2 (06:59→19:20)
[2021-09-09] MEDS: Docusate 100 MG CAP PO SCH ×2 (08:45→20:53)
[2021-09-09] MEDS: Enoxaparin Sodium 40 MG/0.4 ML SYRINGE SC SCH (08:45)
[2021-09-09] MEDS: methylPREDNISolone Sod Succ 40 MG VIAL IVP SCH (08:45)
[2021-09-09] MEDS: Polyethylene Glycol 3350 17 GM Packet PO SCH (08:45)
[2021-09-09 08:53] LABS: #Eosinphils 0.1 thou/uL (0.0-0.7); #Lymphocytes 1.3 thou/uL (1.20-3.40); #Monocytes 0.9 thou/uL (0.11-0.59); #Neutrophils 11.2 thou/uL (1.40-6.50); %Basophils 0.3 % (0.0-1.0); %Eosinophils 0.5 % (0.0-10.0); %Lymphocytes 9.9 % (21.0-51.0); %Monocytes 6.3 % (0.0-10.0); Hemoglobin 10.8 g/dL (14.0-18.0); Mean Corpuscular HGB CONC 30.9 g/dL (32.0-36.0); Mean Corpuscular Hemoglobin 29.4 pg (27.0-31.0); Mean Platelet Volume 8.5 fL (7.4-10.4); Platelet Count 172 thou/uL (130-400); RBC Distribution Width 13.9 % (11.5-14.5); Red Blood Cell (RBC) Count 3.67 mill/uL (4.70-6.10); White Blood Cell (WBC) Count 13.5 thou/uL (4.8-10.8)
[2021-09-09 09:13] LABS: Phosphorus 2.5 mg/dL (2.3-4.7)
[2021-09-09 15:19] LABS: Anion Gap 11 mmol/L (10-20); BUN (Urea Nitrogen) 23 mg/dL (8.4-25.7); Calc. Creatinine Clearance 151 mL/min (70-130); Calcium 8.7 mg/dL (7.8-10.44); Carbon Dioxide 33 mmol/L (23-31); Chloride 93 mmol/L (98-107); Glucose 118 mg/dL (80-115); Potassium 4.6 mmol/L (3.5-5.1); Sodium 132 mmol/L (136-145)
[2021-09-09] MEDS: Nicotine 14 MG PATCH TD SCH (20:53)
[2021-09-10] MEDS: Acetylcysteine 20% 200 MG/ML 30 ML VIAL INH SCH ×4 (03:32→22:25)
[2021-09-10 04:55] LABS: #Eosinphils 0.1 thou/uL (0.0-0.7); #Lymphocytes 1.4 thou/uL (1.20-3.40); #Monocytes 0.9 thou/uL (0.11-0.59); #Neutrophils 9.2 thou/uL (1.40-6.50); %Basophils 0.1 % (0.0-1.0); %Eosinophils 0.7 % (0.0-10.0); %Lymphocytes 12.1 % (21.0-51.0); %Monocytes 7.8 % (0.0-10.0); %Neutrophils 79.3 % (42.0-75.0); Mean Corpuscular Hemoglobin 28.2 pg (27.0-31.0); Mean Corpuscular Volume 93.8 fL (78.0-98.0); Mean Platelet Volume 8.2 fL (7.4-10.4); Platelet Count 162 thou/uL (130-400); Red Blood Cell (RBC) Count 3.56 mill/uL (4.70-6.10); White Blood Cell (WBC) Count 11.5 thou/uL (4.8-10.8)
[2021-09-10] MEDS: Piperacillin/Tazobactam 3.375 GM in Sodium Chloride 0.9% 100 ML IVPB SCH ×3 (04:59→20:18)
[2021-09-10] MEDS: Mometasone 200 MCG/Formoterol 5 MCG 120 PUFF INHALER INH SCH ×2 (07:08→19:00)
[2021-09-10] MEDS: Polyethylene Glycol 3350 17 GM Packet PO SCH (08:29)
[2021-09-10] MEDS: methylPREDNISolone Sod Succ 40 MG VIAL IVP SCH (08:29)
[2021-09-10] MEDS: Docusate 100 MG CAP PO SCH ×2 (08:29→20:18)
[2021-09-10] MEDS: Enoxaparin Sodium 40 MG/0.4 ML SYRINGE SC SCH (08:29)
[2021-09-10] MEDS: Nicotine 14 MG PATCH TD SCH (20:18)
[2021-09-11] MEDS: Acetylcysteine 20% 200 MG/ML 30 ML VIAL INH SCH ×4 (01:25→19:22)
[2021-09-11 03:11] LABS: #Eosinphils 0.1 thou/uL (0.0-0.7); #Lymphocytes 1.1 thou/uL (1.20-3.40); #Monocytes 0.9 thou/uL (0.11-0.59); #Neutrophils 6.8 thou/uL (1.40-6.50); %Basophils 0.2 % (0.0-1.0); %Eosinophils 0.6 % (0.0-10.0); %Lymphocytes 12.1 % (21.0-51.0); %Monocytes 10.3 % (0.0-10.0); %Neutrophils 76.8 % (42.0-75.0); Hemoglobin 10.2 g/dL (14.0-18.0); Mean Corpuscular HGB CONC 31.1 g/dL (32.0-36.0); Mean Corpuscular Hemoglobin 29.7 pg (27.0-31.0); Mean Corpuscular Volume 95.7 fL (78.0-98.0); Mean Platelet Volume 8.3 fL (7.4-10.4); Platelet Count 168 thou/uL (130-400); RBC Distribution Width 13.8 % (11.5-14.5); Red Blood Cell (RBC) Count 3.44 mill/uL (4.70-6.10); White Blood Cell (WBC) Count 8.8 thou/uL (4.8-10.8)
[2021-09-11] MEDS: Piperacillin/Tazobactam 3.375 GM in Sodium Chloride 0.9% 100 ML IVPB SCH ×3 (04:27→20:34)
[2021-09-11] MEDS: Mometasone 200 MCG/Formoterol 5 MCG 120 PUFF INHALER INH SCH ×2 (07:15→19:23)
[2021-09-11] MEDS: Docusate 100 MG CAP PO SCH ×2 (09:48→20:35)
[2021-09-11] MEDS: methylPREDNISolone Sod Succ 40 MG VIAL IVP SCH (09:48)
[2021-09-11] MEDS: Enoxaparin Sodium 40 MG/0.4 ML SYRINGE SC SCH (09:48)
[2021-09-11] MEDS: Polyethylene Glycol 3350 17 GM Packet PO SCH (09:49)
[2021-09-11] MEDS: Nicotine 14 MG PATCH TD SCH (20:34)
[2021-09-12] MEDS: Acetylcysteine 20% 200 MG/ML 30 ML VIAL INH SCH ×3 (01:06→14:14)
[2021-09-12] MEDS: Piperacillin/Tazobactam 3.375 GM in Sodium Chloride 0.9% 100 ML IVPB SCH ×3 (03:53→20:32)
[2021-09-12] MEDS: Mometasone 200 MCG/Formoterol 5 MCG 120 PUFF INHALER INH SCH ×2 (08:45→18:47)
[2021-09-12] MEDS: Polyethylene Glycol 3350 17 GM Packet PO SCH (09:27)
[2021-09-12] MEDS: methylPREDNISolone Sod Succ 40 MG VIAL IVP SCH (09:27)
[2021-09-12] MEDS: Docusate 100 MG CAP PO SCH ×2 (09:27→20:33)
[2021-09-12] MEDS: Enoxaparin Sodium 40 MG/0.4 ML SYRINGE SC SCH (09:27)
[2021-09-12] MEDS: Nicotine 14 MG PATCH TD SCH (20:35)
[2021-09-13] MEDS: Piperacillin/Tazobactam 3.375 GM in Sodium Chloride 0.9% 100 ML IVPB SCH (05:08)
[2021-09-13] MEDS: Mometasone 200 MCG/Formoterol 5 MCG 120 PUFF INHALER INH SCH ×2 (07:28→19:07)
[2021-09-13] MEDS: Multivitamin W/ Minerals 1 TAB PO SCH (08:18)
[2021-09-13] MEDS: Enoxaparin Sodium 40 MG/0.4 ML SYRINGE SC SCH (08:18)
[2021-09-13] MEDS: predniSONE 20 MG TAB PO SCH (08:18)
[2021-09-13] MEDS: Docusate 100 MG CAP PO SCH ×2 (08:19→20:28)
[2021-09-13] MEDS: Polyethylene Glycol 3350 17 GM Packet PO SCH (08:19)
[2021-09-13] MEDS ORDERED: Non-Formulary Item 1 EACH (Multivit-Mins/Iron/Folic/Lycop [Centrum Men's Tablet] 1 EACH T PO SCH (09:00)
[2021-09-13] MEDS: Amlodipine 5 MG TAB PO SCH (20:28)
[2021-09-13] MEDS: Nicotine 14 MG PATCH TD SCH (20:28)
[2021-09-13] MEDS ORDERED: Amlodipine 5 MG TAB PO SCH (21:00)
[2021-09-13 23:27] LABS: SARS-CoV-2 PCR by NAA Not Detected (NotDetected)
[2021-09-14] MEDS: Mometasone 200 MCG/Formoterol 5 MCG 120 PUFF INHALER INH SCH ×2 (07:56→18:55)
[2021-09-14] MEDS: Docusate 100 MG CAP PO SCH ×2 (08:56→20:56)
[2021-09-14] MEDS: Polyethylene Glycol 3350 17 GM Packet PO SCH (08:56)
[2021-09-14] MEDS: Multivitamin W/ Minerals 1 TAB PO SCH (08:57)
[2021-09-14] MEDS: predniSONE 20 MG TAB PO SCH (08:57)
[2021-09-14] MEDS: Enoxaparin Sodium 40 MG/0.4 ML SYRINGE SC SCH (08:58)
[2021-09-14] MEDS ORDERED: Loperamide HCl 2 MG CAP PO PRN (11:26)
[2021-09-14] MEDS: Amlodipine 5 MG TAB PO SCH (20:55)
[2021-09-14] MEDS: Nicotine 14 MG PATCH TD SCH (21:06)
[2021-09-15] MEDS: Mometasone 200 MCG/Formoterol 5 MCG 120 PUFF INHALER INH SCH (07:11)
[2021-09-15] MEDS: Multivitamin W/ Minerals 1 TAB PO SCH (08:11)
[2021-09-15] MEDS: predniSONE 20 MG TAB PO SCH (08:11)
[2021-09-15] MEDS: Enoxaparin Sodium 40 MG/0.4 ML SYRINGE SC SCH (08:12)
[2021-09-15] MEDS: Docusate 100 MG CAP PO SCH (08:13)
[2021-09-15] MEDS: Polyethylene Glycol 3350 17 GM Packet PO SCH (08:13)
[2021-09-15 11:07] VITALS: BP 128/81; TEMP 98.7
[2021-09-15] MEDS: FLU VACC QS2021-22(65YR UP)/PF 240 MCG/0.7 ML SYRINGE IM ONE (12:00)
== END 2021-09-15 14:33 | disposition home or self-care (01) | DRG 177 ==
LOC: ERS 16:13 → ERHOLD 19:32 → 2NO 22:49 → IMCU/EMU 09-07 16:10 → T4-A 09-14 15:27
PROVIDERS: ADMIT Student in an Organized Health Care Education/Training Program; ATTEND Internal Medicine
PROC: 5A09557 Assistance with Respiratory Ventilation, Greater than 96 Consecutive Hours, Continuous Positive Airway Pressure (ICD-10-PCS; principal; 2021-09-05)
DX: J69.0 Pneumonitis due to inhalation of food and vomit (principal); J96.21 Acute and chronic respiratory failure with hypoxia; I21.4 Non-ST elevation (NSTEMI) myocardial infarction; J96.22 Acute and chronic respiratory failure with hypercapnia; J44.1 Chronic obstructive pulmonary disease with (acute) exacerbation; K92.2 Gastrointestinal hemorrhage, unspecified; N39.0 Urinary tract infection, site not specified; Z20.822 Contact with and (suspected) exposure to COVID-19; D64.9 Anemia, unspecified; E87.5 Hyperkalemia; B96.20 Unspecified Escherichia coli [E. coli] as the cause of diseases classified elsewhere; R13.10 Dysphagia, unspecified; I10 Essential (primary) hypertension; F17.210 Nicotine dependence, cigarettes, uncomplicated; R91.1 Solitary pulmonary nodule; E11.9 Type 2 diabetes mellitus without complications; E78.00 Pure hypercholesterolemia, unspecified; E66.9 Obesity, unspecified; T17.908A Unspecified foreign body in respiratory tract, part unspecified causing other injury, initial encounter; I25.10 Atherosclerotic heart disease of native coronary artery without angina pectoris; Z88.7 Allergy status to serum and vaccine; Z79.84 Long term (current) use of oral hypoglycemic drugs; Z79.51 Long term (current) use of inhaled steroids; Z79.52 Long term (current) use of systemic steroids; Z79.899 Other long term (current) drug therapy; Z68.30 Body mass index [BMI] 30.0-30.9, adult; Z99.81 Dependence on supplemental oxygen
CPT/HCPCS: 0240U; 36415; 36416; 36600; 71045; 71275; 80048; 80053; 81001; 82805; 83036; 83605; 83735; 83880; 84100; 84484; 85025; 85379; 85610; 85730; 90471; 90662; 93005; 93010; 94640; 94660; 94760; 96365; 96367; 96375; 96376; G0008; J0132; J0696; J1644; J1650; J1815; J2543; J2920; J2930; J3475; J3490; J7512; J7611; J7620; Q9967; U0003; U0005

== ENCOUNTER 2021-10-20 09:35 | Emergency (ER) | payer MEDICARE ==
[2021-10-20] MEDS ORDERED: Dexamethasone 10 MG/ML VIAL ONE (10:06)
[2021-10-20] MEDS ORDERED: Magnesium 2 GM/50 ML BAG (IN WATER) ONE (10:06)
[2021-10-20 10:54] LABS: #Eosinphils 0.1 thou/uL (0.0-0.7); #Lymphocytes 0.9 thou/uL (1.20-3.40); #Monocytes 0.7 thou/uL (0.11-0.59); #Neutrophils 7.4 thou/uL (1.40-6.50); %Basophils 0.3 % (0.0-1.0); %Eosinophils 0.8 % (0.0-10.0); %Lymphocytes 9.7 % (21.0-51.0); %Monocytes 7.3 % (0.0-10.0); %Neutrophils 81.9 % (42.0-75.0); Hemoglobin 10.8 g/dL (14.0-18.0); Mean Corpuscular HGB CONC 29.1 g/dL (32.0-36.0); Mean Corpuscular Hemoglobin 28.3 pg (27.0-31.0); Mean Corpuscular Volume 97.2 fL (78.0-98.0); Mean Platelet Volume 8.6 fL (7.4-10.4); Platelet Count 165 thou/uL (130-400); RBC Distribution Width 14.7 % (11.5-14.5); Red Blood Cell (RBC) Count 3.82 mill/uL (4.70-6.10); White Blood Cell (WBC) Count 9.1 thou/uL (4.8-10.8)
[2021-10-20 11:01] LABS: Bacteria/HPF None Seen HPF (None Seen); Bilirubin Negative (Negative); Blood, Urine Negative (Negative); Clarity Clear (Clear); Glucose, Urine (Dipstick) Normal (Negative); Ketone, Urine Negative (Negative); Leukocyte Negative Leu/uL (Negative); Nitrite Negative (Negative); Protein, Urine (Dipstick) 50 mg/dL (Neg-Trace); RBC/HPF 0-3 HPF (0-3); Specific Gravity, Urine 1.016 (1.002-1.036); Squamous Epithelial 0-3 HPF (0-3); Urobilinogen Normal mg/dL (Less than 2); WBC/HPF 0-3 HPF (0-3)
[2021-10-20 11:11] LABS: MDiff Complete? YES; Platelet Morphology Comment Appears Adequate; Polychromasia SLIGHT = 2-3 cells (100X) (0-2/hpf); Stomatocytes SLIGHT = 2-5 cells (100X) (0-1/hpf)
[2021-10-20 11:18] LABS: ALT (SGPT) 9 U/L (8-55); AST (SGOT) 11 U/L (5-34); Albumin 3.5 g/dL (3.4-4.8); Alkaline Phosphatase 62 U/L (40-110); BUN (Urea Nitrogen) 12 mg/dL (8.4-25.7); Bilirubin, Total 0.6 mg/dL (0.2-1.2); CK (CPK) 14 U/L (30-200); Calc. Creatinine Clearance 0 mL/min (70-130); Calcium 8.9 mg/dL (7.8-10.44); Globulin 2.6 g/dL (2.4-3.5); Glucose 82 mg/dL (80-115); Lipase 18 U/L (8-78); Protein, Total 6.1 g/dL (5.8-8.1)
[2021-10-20 11:27] LABS: Anion Gap 15 mmol/L (10-20); Carbon Dioxide 40 mmol/L (23-31); Chloride 90 mmol/L (98-107); Potassium 4.8 mmol/L (3.5-5.1); Sodium 140 mmol/L (136-145)
[2021-10-20 18:47] LABS: SARS-CoV-2 PCR by NAA Not Detected (NotDetected)
== END 2021-10-20 13:00 | disposition home or self-care (01) ==
LOC: ERS 09:35
DX: J44.9 Chronic obstructive pulmonary disease, unspecified (principal); Z20.822 Contact with and (suspected) exposure to COVID-19; I10 Essential (primary) hypertension; Z87.891 Personal history of nicotine dependence
CPT/HCPCS: 71045; 80053; 82550; 83690; 83880; 84484; 85025; 93005; U0003; U0005; 81003; 81015; 96365; 96375; J1100; J3475

== ENCOUNTER 2021-11-19 18:05 | Inpatient (IN) | payer MEDICARE ==
[~2021-11-19 18:05] MED LIST changes: +Iopamidol 370 76% 100 ML VIAL ONE; -Iopamidol-370 76% 500 ML 1 ML ONE
[2021-11-19 19:48] LABS: #Eosinphils 0.1 thou/uL (0.0-0.7); #Lymphocytes 0.6 thou/uL (1.20-3.40); #Monocytes 0.5 thou/uL (0.11-0.59); %Basophils 0.3 % (0.0-1.0); %Eosinophils 0.6 % (0.0-10.0); %Lymphocytes 5.9 % (21.0-51.0); %Monocytes 4.5 % (0.0-10.0); %Neutrophils 88.9 % (42.0-75.0); Hemoglobin 11.3 g/dL (14.0-18.0); Mean Corpuscular HGB CONC 31.7 g/dL (32.0-36.0); Mean Corpuscular Hemoglobin 29.4 pg (27.0-31.0); Mean Corpuscular Volume 92.6 fL (78.0-98.0); Mean Platelet Volume 7.8 fL (7.4-10.4); Platelet Count 210 thou/uL (130-400); RBC Distribution Width 14.6 % (11.5-14.5); Red Blood Cell (RBC) Count 3.84 mill/uL (4.70-6.10); White Blood Cell (WBC) Count 10.1 thou/uL (4.8-10.8)
[2021-11-19 20:12] LABS: ALT (SGPT) 10 U/L (8-55); AST (SGOT) 15 U/L (5-34); Albumin 3.8 g/dL (3.4-4.8); Alkaline Phosphatase 81 U/L (40-110); Anion Gap 13 mmol/L (10-20); BUN (Urea Nitrogen) 12 mg/dL (8.4-25.7); Bilirubin, Total 0.5 mg/dL (0.2-1.2); Calc. Creatinine Clearance 0 mL/min (70-130); Calcium 8.7 mg/dL (7.8-10.44); Carbon Dioxide 30 mmol/L (23-31); Chloride 96 mmol/L (98-107); Globulin 2.6 g/dL (2.4-3.5); Glucose 130 mg/dL (80-115); Potassium 4.3 mmol/L (3.5-5.1); Protein, Total 6.4 g/dL (5.8-8.1); Sodium 135 mmol/L (136-145)
[2021-11-19] MEDS ORDERED: Xylocaine 1% w/ Epi 1:100K 10 ML VIAL ONE (20:19)
[2021-11-19 21:41] LABS: BF Color Yellow; Clarity Hazy (Clear); Tube # EDTA
[2021-11-19 22:03] LABS: RBC Count-Automated (BF) 5724 /cu.mm; WBC/Nucleated-Auto (BF) 6487 /cu.mm
[2021-11-19 22:09] LABS: BF Segmented Neutrophils 72 %; Cell Count Non Hematic 13 %; Lymphocytes 15 %
[2021-11-19 23:47] VITALS: BMI 29.2
[2021-11-20] MEDS ORDERED: Ondansetron PF 4 MG/2 ML Vial IVP PRN (00:14)
[2021-11-20] MEDS ORDERED: Albuterol 200 PUFF (6.7GM INHALER) INH PRN (00:20)
[2021-11-20 01:16] LABS: Bacteria/HPF None Seen HPF (None Seen); Bilirubin Negative (Negative); Blood, Urine Negative (Negative); Clarity Clear (Clear); Glucose, Urine (Dipstick) Normal (Negative); Ketone, Urine Negative (Negative); Leukocyte Negative Leu/uL (Negative); Nitrite Negative (Negative); Protein, Urine (Dipstick) 20 mg/dL (Neg-Trace); RBC/HPF 0-3 HPF (0-3); Specific Gravity, Urine 1.028 (1.002-1.036); Squamous Epithelial 0-3 HPF (0-3); Urobilinogen Normal mg/dL (Less than 2); WBC/HPF 0-3 HPF (0-3)
[2021-11-20 01:17] LABS: Urine Culture Reflex No No
[2021-11-20 04:02] LABS: Hemoglobin 10.9 g/dL (14.0-18.0); Mean Corpuscular HGB CONC 31.7 g/dL (32.0-36.0); Mean Corpuscular Hemoglobin 29.7 pg (27.0-31.0); Mean Corpuscular Volume 93.8 fL (78.0-98.0); Mean Platelet Volume 8.4 fL (7.4-10.4); Platelet Count 203 thou/uL (130-400); RBC Distribution Width 14.8 % (11.5-14.5); Red Blood Cell (RBC) Count 3.66 mill/uL (4.70-6.10); White Blood Cell (WBC) Count 8.4 thou/uL (4.8-10.8)
[2021-11-20 04:28] LABS: Anion Gap 10 mmol/L (10-20); BUN (Urea Nitrogen) 12 mg/dL (8.4-25.7); Calc. Creatinine Clearance 183 mL/min (70-130); Carbon Dioxide 32 mmol/L (23-31); Chloride 96 mmol/L (98-107); Glucose 95 mg/dL (80-115); Potassium 3.9 mmol/L (3.5-5.1); Sodium 134 mmol/L (136-145)
[2021-11-20 04:32] LABS: Band 2 % (5-11); Eosinophils 2 % (0-10); Lymphocytes 14 % (21-51); MDiff Complete? YES; Monocytes 9 % (0-10); Neutrophil 73 % (42-75)
[2021-11-20] MEDS: Acetaminophen 325 MG TAB PO PRN ×4 (05:59→23:54)
[2021-11-20] MEDS: Mometasone 100 MCG/Formoterol 5 MCG 120 PUFF INHALER INH SCH ×2 (07:06→19:15)
[2021-11-20] MEDS: Multivitamin W/ Minerals 1 TAB PO SCH (07:57)
[2021-11-20] MEDS: Enoxaparin Sodium 40 MG/0.4 ML SYRINGE SC SCH (07:57)
[2021-11-20] MEDS ORDERED: Non-Formulary Item 1 EACH (Fluticasone/Vilanterol [Breo Ellipta] 100 MCG/25 MCG Blst.W.De IH SCH (09:00)
[2021-11-20 11:26] LABS: Pleural Fluid, Protein 3.4 g/dL
[2021-11-20] MEDS ORDERED: Piperacillin/Tazobactam 3.375 GM in Sodium Chloride 0.9% 100 ML IVPB SCH (12:00)
[2021-11-20 12:34] LABS: Fluid, pH - Pleural Fld Greater than 7.50 (7.60 - 7.66)
[2021-11-20] MEDS: Piperacillin/Tazobactam 3.375 GM in Sodium Chloride 0.9% 100 ML IVPB SCH ×2 (16:36→23:53)
[2021-11-20 17:15] LABS: SARS-CoV-2 PCR by NAA Not Detected (NotDetected)
[2021-11-20] MEDS: Amlodipine 5 MG TAB PO SCH (20:13)
[2021-11-21 06:15] LABS: #Eosinphils 0.1 thou/uL (0.0-0.7); #Lymphocytes 1.4 thou/uL (1.20-3.40); #Monocytes 0.6 thou/uL (0.11-0.59); #Neutrophils 6.3 thou/uL (1.40-6.50); %Basophils 0.4 % (0.0-1.0); %Eosinophils 1.2 % (0.0-10.0); %Lymphocytes 16.6 % (21.0-51.0); %Monocytes 7.5 % (0.0-10.0); %Neutrophils 74.3 % (42.0-75.0); Hemoglobin 11.4 g/dL (14.0-18.0); Mean Corpuscular HGB CONC 31.6 g/dL (32.0-36.0); Mean Corpuscular Hemoglobin 29.7 pg (27.0-31.0); Mean Corpuscular Volume 93.8 fL (78.0-98.0); Mean Platelet Volume 7.9 fL (7.4-10.4); Platelet Count 237 thou/uL (130-400); RBC Distribution Width 14.7 % (11.5-14.5); Red Blood Cell (RBC) Count 3.85 mill/uL (4.70-6.10); White Blood Cell (WBC) Count 8.4 thou/uL (4.8-10.8)
[2021-11-21 06:29] LABS: Anion Gap 13 mmol/L (10-20); BUN (Urea Nitrogen) 12 mg/dL (8.4-25.7); Calc. Creatinine Clearance 164 mL/min (70-130); Calcium 8.9 mg/dL (7.8-10.44); Carbon Dioxide 30 mmol/L (23-31); Chloride 98 mmol/L (98-107); Glucose 94 mg/dL (80-115); Potassium 4.6 mmol/L (3.5-5.1); Sodium 136 mmol/L (136-145)
[2021-11-21] MEDS: Mometasone 100 MCG/Formoterol 5 MCG 120 PUFF INHALER INH SCH ×2 (08:12→18:56)
[2021-11-21] MEDS: Enoxaparin Sodium 40 MG/0.4 ML SYRINGE SC SCH (10:34)
[2021-11-21] MEDS: Piperacillin/Tazobactam 3.375 GM in Sodium Chloride 0.9% 100 ML IVPB SCH ×2 (10:34→18:19)
[2021-11-21] MEDS: Multivitamin W/ Minerals 1 TAB PO SCH (10:35)
[2021-11-21] MEDS: Acetaminophen 325 MG TAB PO PRN ×2 (10:35→20:25)
[2021-11-21] MEDS ORDERED: VANCOMYCIN 2 GRAM/400 ML BAG 2 GM in Premix Bag 1 BAG IVPB SCH (13:15)
[2021-11-21] MEDS: predniSONE 20 MG TAB PO SCH (15:28)
[2021-11-21] MEDS: Amlodipine 5 MG TAB PO SCH (20:25)
[2021-11-22] MEDS: Piperacillin/Tazobactam 3.375 GM in Sodium Chloride 0.9% 100 ML IVPB SCH ×3 (00:43→18:16)
[2021-11-22] MEDS: Vancomycin 1.5 GRAM/300 ML BAG 1.5 GM in Premix Bag 1 BAG IVPB SCH ×2 (02:37→13:13)
[2021-11-22 03:37] LABS: #Eosinphils 0.1 thou/uL (0.0-0.7); #Lymphocytes 0.9 thou/uL (1.20-3.40); #Monocytes 0.6 thou/uL (0.11-0.59); #Neutrophils 7.7 thou/uL (1.40-6.50); %Basophils 0.1 % (0.0-1.0); %Eosinophils 0.5 % (0.0-10.0); %Lymphocytes 9.6 % (21.0-51.0); %Monocytes 6.9 % (0.0-10.0); %Neutrophils 82.9 % (42.0-75.0); Hemoglobin 10.5 g/dL (14.0-18.0); Mean Corpuscular HGB CONC 31.9 g/dL (32.0-36.0); Mean Corpuscular Hemoglobin 29.8 pg (27.0-31.0); Mean Corpuscular Volume 93.6 fL (78.0-98.0); Mean Platelet Volume 7.9 fL (7.4-10.4); Platelet Count 223 thou/uL (130-400); RBC Distribution Width 14.5 % (11.5-14.5); Red Blood Cell (RBC) Count 3.51 mill/uL (4.70-6.10); White Blood Cell (WBC) Count 9.3 thou/uL (4.8-10.8)
[2021-11-22 03:55] LABS: Anion Gap 12 mmol/L (10-20); BUN (Urea Nitrogen) 15 mg/dL (8.4-25.7); Calc. Creatinine Clearance 161 mL/min (70-130); Calcium 8.6 mg/dL (7.8-10.44); Carbon Dioxide 29 mmol/L (23-31); Chloride 99 mmol/L (98-107); Glucose 121 mg/dL (80-115); Sodium 136 mmol/L (136-145)
[2021-11-22] MEDS: Enoxaparin Sodium 40 MG/0.4 ML SYRINGE SC SCH (07:43)
[2021-11-22] MEDS: Multivitamin W/ Minerals 1 TAB PO SCH (07:43)
[2021-11-22] MEDS: Mometasone 100 MCG/Formoterol 5 MCG 120 PUFF INHALER INH SCH ×2 (08:23→19:30)
[2021-11-22] MEDS: predniSONE 20 MG TAB PO SCH (13:13)
[2021-11-22 13:45] LABS: Vancomycin, Trough 13.8 ug/mL
[2021-11-22 14:15] LABS: Fungus Stain Final report (.)
[2021-11-22] MEDS: Acetaminophen 325 MG TAB PO PRN (20:08)
[2021-11-22] MEDS: Amlodipine 5 MG TAB PO SCH (20:08)
[2021-11-23] MEDS: Piperacillin/Tazobactam 3.375 GM in Sodium Chloride 0.9% 100 ML IVPB SCH ×3 (00:23→18:56)
[2021-11-23] MEDS: Vancomycin 1.5 GRAM/300 ML BAG 1.5 GM in Premix Bag 1 BAG IVPB SCH (01:02)
[2021-11-23] MEDS: Mometasone 100 MCG/Formoterol 5 MCG 120 PUFF INHALER INH SCH ×2 (07:53→19:20)
[2021-11-23] MEDS: Multivitamin W/ Minerals 1 TAB PO SCH (08:06)
[2021-11-23] MEDS: Enoxaparin Sodium 40 MG/0.4 ML SYRINGE SC SCH (08:06)
[2021-11-23] MEDS: predniSONE 20 MG TAB PO SCH (12:02)
[2021-11-23 13:24] LABS: Vancomycin, Trough 10.5 ug/mL
[2021-11-23] MEDS: VANCOMYCIN 1.75 GM/350 ML BAG 1.75 GM in Premix Bag 1 BAG IVPB SCH (15:45)
[2021-11-23] MEDS: Amlodipine 5 MG TAB PO SCH (21:13)
[2021-11-23] MEDS: Acetaminophen 325 MG TAB PO PRN (21:14)
[2021-11-24] MEDS: VANCOMYCIN 1.75 GM/350 ML BAG 1.75 GM in Premix Bag 1 BAG IVPB SCH ×2 (01:18→15:26)
[2021-11-24] MEDS: Piperacillin/Tazobactam 3.375 GM in Sodium Chloride 0.9% 100 ML IVPB SCH ×3 (01:18→17:39)
[2021-11-24] MEDS: Mometasone 100 MCG/Formoterol 5 MCG 120 PUFF INHALER INH SCH ×2 (06:47→19:28)
[2021-11-24] MEDS: Multivitamin W/ Minerals 1 TAB PO SCH (09:17)
[2021-11-24] MEDS: Enoxaparin Sodium 40 MG/0.4 ML SYRINGE SC SCH (09:17)
[2021-11-24] MEDS: predniSONE 20 MG TAB PO SCH (14:41)
[2021-11-24] MEDS: Amlodipine 5 MG TAB PO SCH (20:06)
[2021-11-25] MEDS: Piperacillin/Tazobactam 3.375 GM in Sodium Chloride 0.9% 100 ML IVPB SCH ×2 (00:05→08:08)
[2021-11-25] MEDS: VANCOMYCIN 1.75 GM/350 ML BAG 1.75 GM in Premix Bag 1 BAG IVPB SCH (02:05)
[2021-11-25] MEDS: Mometasone 100 MCG/Formoterol 5 MCG 120 PUFF INHALER INH SCH (06:55)
[2021-11-25 07:05] VITALS: BP 142/78; TEMP 98.2
[2021-11-25] MEDS: Multivitamin W/ Minerals 1 TAB PO SCH (08:08)
[2021-11-25] MEDS: Enoxaparin Sodium 40 MG/0.4 ML SYRINGE SC SCH (08:08)
[2021-12-19 08:38] LABS: Fungus Culture Final report (.)
== END 2021-11-25 11:37 | DRG 177 ==
LOC: ERS 18:05 → IMCU/EMU 21:20 → OBSVTOIN 23:16 → T4-B 11-22 16:08
PROVIDERS: ADMIT Internal Medicine; ATTEND Internal Medicine
PROC: 0W9B30Z Drainage of Left Pleural Cavity with Drainage Device, Percutaneous Approach (ICD-10-PCS; principal; 2021-11-19)
PROC: 3E03329 Introduction of Other Anti-infective into Peripheral Vein, Percutaneous Approach (ICD-10-PCS; 2021-11-20)
DX: J15.29 Pneumonia due to other staphylococcus (principal); J96.21 Acute and chronic respiratory failure with hypoxia; J94.8 Other specified pleural conditions; J44.1 Chronic obstructive pulmonary disease with (acute) exacerbation; J44.0 Chronic obstructive pulmonary disease with (acute) lower respiratory infection; I50.32 Chronic diastolic (congestive) heart failure; Z16.24 Resistance to multiple antibiotics; J91.8 Pleural effusion in other conditions classified elsewhere; Z20.822 Contact with and (suspected) exposure to COVID-19; B95.7 Other staphylococcus as the cause of diseases classified elsewhere; I11.0 Hypertensive heart disease with heart failure; D64.9 Anemia, unspecified; R91.1 Solitary pulmonary nodule; R35.89 Other polyuria; Z99.81 Dependence on supplemental oxygen; Z79.899 Other long term (current) drug therapy; Z79.51 Long term (current) use of inhaled steroids; Z82.49 Family history of ischemic heart disease and other diseases of the circulatory system; Z83.6 Family history of other diseases of the respiratory system; Z87.891 Personal history of nicotine dependence
CPT/HCPCS: 32554; 36415; 71045; 71275; 80048; 80053; 80202; 81001; 82150; 82945; 83605; 83615; 83880; 83986; 84157; 84478; 84484; 85025; 85060; 87040; 87070; 87077; 87102; 87116; 87186; 87205; 87206; 88112; 88305; 89051; 93005; 94640; G0378; J1650; J2543; J3370; J3490; J7512; J7620; Q9967; U0003; U0005